=== PATIENT | male | born 1970 | race Caucasian/White ===

== ENCOUNTER 2021-05-12 03:27 | Emergency (ER) | payer OTHER ==
[~2021-05-12] VITALS: Ht 190.5 cm; Wt 100.0 kg
[~2021-05-12 03:27] MED LIST: ASPI81TA44 PO; ATOR20TA PO; CINA30TA PO; CLOP75TA34 PO; FEBU40TA PO; FERR325T28 PO; MAGN400C PO; METO-539 PO; MYCO500T5 PO; PHOS250T5 PO; PRED5TAB PO; SODI650T29 PO; TACR1CAP24 PO
[2021-05-12] MEDS ORDERED: ondansetron/PF 4mg/2ml inj IV STA (03:42)
[2021-05-12] MEDS ORDERED: normal saline 1000ml 1,000 ML IVB ONE (03:45)
[2021-05-12 05:17] VITALS: BP 129/83
[2021-05-13] MEDS ORDERED: AZIT250T PO (15:50)
[2021-05-13] MEDS ORDERED: DEXA6TAB6 PO (15:50)
== END 2021-05-12 05:22 | disposition home or self-care (01) ==
LOC: ER 03:27
DX: U07.1 COVID-19 (principal)
CPT/HCPCS: 96361; 96374; 99283; J2405; J7030; 99284

== ENCOUNTER 2021-05-13 13:20 | Emergency (ER) | payer OTHER ==
[~2021-05-13] VITALS: Ht 190.5 cm; Wt 100.0 kg
[2021-05-13 13:52] VITALS: BP 110/76
[2021-05-13] MEDS ORDERED: dexamethasone 4mg tablet PO ONE (15:40)
[2021-05-13] MEDS ORDERED: azithromycin 250mg tablet PO ONE (15:40)
[2021-05-13] MEDS ORDERED: F PO ONE (15:45)
[2021-05-13] MEDS ORDERED: DEXAMETHASONE 6 MG TABLET PO ONE (15:45)
[2021-05-13] MEDS ORDERED: DEXA6TAB6 PO (15:50)
[2021-05-13] MEDS ORDERED: AZIT250T PO (15:50)
[2021-05-13 16:25] LABS: BASOPHILS % (AUTO) 0.3 % (0-1); EOSINOPHILS % (AUTO) 0.2 % (0-6); HEMATOCRIT 39.3 % (42.0-52.0); HEMOGLOBIN 13.2 g/dl (14.0-17.9); LYMPHOCYTES # (AUTO) 0.3 X10'3 (1.1-4.8); LYMPHOCYTES % (AUTO) 5.2 % (21-51); MEAN CORPUSCULAR HEMOGLOBIN 30.3 PG (27.0-31.0); MEAN CORPUSCULAR HGB CONC 33.5 g/dL (33.0-36.5); MEAN CORPUSCULAR VOLUME 90.6 FL (78-98); MEAN PLATELET VOLUME 9.3 FL (7.4-10.4); MONOCYTES # (AUTO) 0.5 X10'3 (0-0.9); MONOCYTES % (AUTO) 8.7 % (2-12); NEUTROPHILS # (AUTO) 4.5 X10'3 (1.8-7.7); NEUTROPHILS % (AUTO) 85.6 % (42-75); PLATELET COUNT 146 X10'3 (140-440); RED BLOOD COUNT 4.34 X10'6 (4.70-6.10); RED CELL DISTRIBUTION WIDTH 13.6 % (11.5-14.5); WHITE BLOOD COUNT 5.2 X10'3 (4.5-11.0)
[2021-05-13 16:30] LABS: ALANINE AMINOTRANSFERASE 19 U/L (12-78); ALBUMIN 3.2 G/DL (3.4-5.0); ALBUMIN/GLOBULIN RATIO 0.8 (1.1-1.5); ALKALINE PHOSPHATASE 86 IU/L (46-116); ANION GAP 13 (8-16); ASPARTATE AMINO TRANSFERASE 15 U/L (10-37); BILIRUBIN,TOTAL 0.6 MG/DL (0.1-1.0); BLOOD UREA NITROGEN 46 MG/DL (7-18); BUN/CREATININE RATIO 14.3 (5.4-32.0); CALCIUM 8.6 MG/DL (8.5-10.1); CHLORIDE 107 MMOL/L (99-107); CREATININE 3.21 MG/DL (0.60-1.10); GLUCOSE 127 MG/DL (70-104); MAGNESIUM 2.2 MG/DL (1.5-2.4); POTASSIUM 4.9 MMOL/L (3.5-5.1); SODIUM 141 MMOL/L (135-145); TOTAL CARBON DIOXIDE 21.3 MMOL/L (24-32); eGFR 21 ML/MIN
[2021-05-13] MEDS ORDERED: [UNRECOGNIZED DRUG - OTHER] IV ONE (16:30)
--- NOTE | 2021-05-13 16:39 | NUR ---
FLOYD [phone]
== END 2021-05-13 18:21 | disposition home or self-care (01) ==
LOC: ER 13:21
DX: U07.1 COVID-19 (principal); J12.82 Pneumonia due to coronavirus disease 2019; I11.9 Hypertensive heart disease without heart failure; Z88.5 Allergy status to narcotic agent; Z79.899 Other long term (current) drug therapy
CPT/HCPCS: 36415; 71045; 80053; 83605; 83735; 84145; 85025; 87040; 93005; 99291; M0243; Q0243; J8540

== ENCOUNTER 2021-07-10 06:44 | Emergency (ER) | payer OTHER ==
[~2021-07-10] VITALS: Ht 190.5 cm; Wt 105.0 kg
[~2021-07-10 06:44] MED LIST changes: +DEXA6TAB6 PO
[2021-07-10] MEDS ORDERED: ondansetron/PF 4mg/2ml inj IV ONE (06:55)
[2021-07-10] MEDS ORDERED: morphine 4 MG/ML inj SYRINge IV ONE (06:55)
[2021-07-10 07:28] LABS: BASOPHILS % (AUTO) 0.7 % (0-1); EOSINOPHILS # (AUTO) 0.1 X10'3 (0-0.9); EOSINOPHILS % (AUTO) 1.3 % (0-6); HEMATOCRIT 29.3 % (42.0-52.0); HEMOGLOBIN 9.6 g/dl (14.0-17.9); LYMPHOCYTES # (AUTO) 0.9 X10'3 (1.1-4.8); LYMPHOCYTES % (AUTO) 16.4 % (21-51); MEAN CORPUSCULAR HEMOGLOBIN 30.5 PG (27.0-31.0); MEAN CORPUSCULAR HGB CONC 32.6 g/dL (33.0-36.5); MEAN CORPUSCULAR VOLUME 93.6 FL (78-98); MEAN PLATELET VOLUME 8.6 FL (7.4-10.4); MONOCYTES # (AUTO) 0.4 X10'3 (0-0.9); MONOCYTES % (AUTO) 6.9 % (2-12); NEUTROPHILS # (AUTO) 4.3 X10'3 (1.8-7.7); NEUTROPHILS % (AUTO) 74.7 % (42-75); PLATELET COUNT 175 X10'3 (140-440); RED BLOOD COUNT 3.13 X10'6 (4.70-6.10); RED CELL DISTRIBUTION WIDTH 16.2 % (11.5-14.5); WHITE BLOOD COUNT 5.8 X10'3 (4.5-11.0)
[2021-07-10 07:40] LABS: ALANINE AMINOTRANSFERASE 15 U/L (12-78); ALBUMIN 3.4 G/DL (3.4-5.0); ALBUMIN/GLOBULIN RATIO 1.4 (1.1-1.5); ALKALINE PHOSPHATASE 73 IU/L (46-116); ANION GAP 11 (8-16); ASPARTATE AMINO TRANSFERASE 9 U/L (10-37); BILIRUBIN,TOTAL 0.4 MG/DL (0.1-1.0); BLOOD UREA NITROGEN 38 MG/DL (7-18); BUN/CREATININE RATIO 14.3 (5.4-32.0); CALCIUM 9.2 MG/DL (8.5-10.1); CHLORIDE 114 MMOL/L (99-107); CREATININE 2.66 MG/DL (0.60-1.10); GLUCOSE 120 MG/DL (70-104); POTASSIUM 4.4 MMOL/L (3.5-5.1); SODIUM 146 MMOL/L (135-145); TOTAL CARBON DIOXIDE 21.1 MMOL/L (24-32); TOTAL PROTEIN 5.9 G/DL (6.4-8.2); eGFR 25 ML/MIN
[2021-07-10] MEDS ORDERED: LIDOcaine 1% W/epiNEPHrine 1:100,000 20ml vial ONE (08:00)
[2021-07-10] MEDS ORDERED: LIDOcaine 1% w/epiNEPHrine 1:200,000 30ml vial IJ ONE (08:25)
[2021-07-10] MEDS ORDERED: CEPH-585 PO (11:00)
[2021-07-10] MEDS ORDERED: HYDR-3965 PO (11:00)
[2021-07-10 11:33] VITALS: BP 105/79
== END 2021-07-10 11:40 | disposition home or self-care (01) ==
LOC: ER 06:44
DX: S80.02XA Contusion of left knee, initial encounter (principal); M25.562 Pain in left knee; M25.462 Effusion, left knee; I25.10 Atherosclerotic heart disease of native coronary artery without angina pectoris; E78.00 Pure hypercholesterolemia, unspecified; I10 Essential (primary) hypertension; M10.9 Gout, unspecified; Z98.890 Other specified postprocedural states; Z88.8 Allergy status to other drugs, medicaments and biological substances; Z79.82 Long term (current) use of aspirin; Z79.2 Long term (current) use of antibiotics; Z79.899 Other long term (current) drug therapy; W18.09XA Striking against other object with subsequent fall, initial encounter; Y93.89 Activity, other specified; Y92.89 Other specified places as the place of occurrence of the external cause; Y99.8 Other external cause status
CPT/HCPCS: 20610; 36415; 73552; 73560; 80053; 85025; 85610; 96374; 96375; 99284; J2270; J2405

== ENCOUNTER 2023-07-07 02:39 | Inpatient (IN) | payer OTHER ==
[~2023-07-07] VITALS: Ht 188 cm; Wt 103.5 kg
[2023-07-07] MEDS ORDERED: normal saline 1000ml 1,000 ML IV ONE (03:35)
--- NOTE | 2023-07-07 03:36 | NUR ---
WHILE OBTAINING ORTHOSTATIC VITALS, PATIENT BECAME DIZZY DURING STANDING BP, ATTEMPTED TO ASSIST PATIENT BACK TO BED, PATIENT FAINTED, BECAME DIAPHORETIC AND PALE. ASSISTED PATIENT BACK TO BED WITH ASSISTANCE FROM STAFF X2. NOTIFIED, VERBALIZED UNDERSTANDING.
[2023-07-07 04:05] LABS: APTT 23 SECONDS (22-32); PROTHROMBIN TIME 11.2 SECONDS (9.0-12.0)
[2023-07-07 04:07] LABS: ALANINE AMINOTRANSFERASE 19 U/L (12-78); ALBUMIN 3.9 G/DL (3.4-5.0); ALBUMIN/GLOBULIN RATIO 1.4 (1.1-1.5); ALKALINE PHOSPHATASE 97 IU/L (46-116); ANION GAP 10 (8-16); ASPARTATE AMINO TRANSFERASE 15 U/L (10-37); BILIRUBIN,TOTAL 0.5 MG/DL (0.1-1.0); BLOOD UREA NITROGEN 48 MG/DL (7-18); BUN/CREATININE RATIO 13.9 (10.0-20.0); CALCIUM 9.6 MG/DL (8.5-10.1); CHLORIDE 108 MMOL/L (99-107); CREATININE 3.45 MG/DL (0.60-1.10); GLUCOSE 121 MG/DL (70-104); POTASSIUM 4.3 MMOL/L (3.5-5.1); SODIUM 139 MMOL/L (135-145); TOTAL CARBON DIOXIDE 21.3 MMOL/L (24-32); TOTAL PROTEIN 6.7 G/DL (6.4-8.2); eCRCL 29 ML/MIN; eGFR 19 ML/MIN
[2023-07-07 04:11] LABS: BASOPHILS % (AUTO) 0.5 % (0-1); EOSINOPHILS % (AUTO) 0.3 % (0-6); HEMATOCRIT 35.8 % (42.0-52.0); HEMOGLOBIN 11.8 g/dl (14.0-17.9); LYMPHOCYTES # (AUTO) 1.1 X10'3 (1.1-4.8); LYMPHOCYTES % (AUTO) 13.1 % (21-51); MEAN CORPUSCULAR HEMOGLOBIN 30.5 PG (27.0-31.0); MEAN CORPUSCULAR HGB CONC 33.1 g/dL (33.0-36.5); MEAN CORPUSCULAR VOLUME 92.2 FL (78-98); MEAN PLATELET VOLUME 8.9 FL (7.4-10.4); MONOCYTES # (AUTO) 0.6 X10'3 (0-0.9); MONOCYTES % (AUTO) 6.5 % (2-12); NEUTROPHILS # (AUTO) 6.9 X10'3 (1.8-7.7); NEUTROPHILS % (AUTO) 79.6 % (42-75); PLATELET COUNT 178 X10'3 (140-440); RED BLOOD COUNT 3.88 X10'6 (4.70-6.10); RED CELL DISTRIBUTION WIDTH 14.9 % (11.5-14.5); WHITE BLOOD COUNT 8.7 X10'3 (4.5-11.0)
--- NOTE | 2023-07-07 04:22 | NUR ---
PATIENT ENDORSES NAUSEA, RELAYED TO MD, NEW ORDERS RECEIVED.
[2023-07-07] MEDS ORDERED: ondansetron/PF 4mg/2ml inj IV ONE (04:25)
--- NOTE | 2023-07-07 06:27 | NUR ---
REPORT GIVEN TO DAY CHARGE, CHIRAG.
--- NOTE | 2023-07-07 07:05 | NUR ---
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
[2023-07-07 07:42] LABS: BASOPHILS % (AUTO) 0.3 % (0-1); EOSINOPHILS % (AUTO) 0.1 % (0-6); HEMATOCRIT 31.1 % (42.0-52.0); HEMOGLOBIN 10.1 g/dl (14.0-17.9); LYMPHOCYTES # (AUTO) 0.6 X10'3 (1.1-4.8); LYMPHOCYTES % (AUTO) 4.5 % (21-51); MEAN CORPUSCULAR HGB CONC 32.6 g/dL (33.0-36.5); MEAN PLATELET VOLUME 8.9 FL (7.4-10.4); MONOCYTES # (AUTO) 1.1 X10'3 (0-0.9); NEUTROPHILS # (AUTO) 11.9 X10'3 (1.8-7.7); NEUTROPHILS % (AUTO) 87.1 % (42-75); PLATELET COUNT 164 X10'3 (140-440); RED BLOOD COUNT 3.38 X10'6 (4.70-6.10); RED CELL DISTRIBUTION WIDTH 14.7 % (11.5-14.5); WHITE BLOOD COUNT 13.7 X10'3 (4.5-11.0)
[2023-07-07] MEDS ORDERED: potassium Cl 20 mEq SR tablet PO PRN ×2 (09:30)
[2023-07-07] MEDS ORDERED: ondansetron/PF 4mg/2ml inj IV PRN (09:30)
[2023-07-07] MEDS ORDERED: morphine 2 MG/ML inj. syringe IV PRN (09:30)
[2023-07-07] MEDS ORDERED: potassium Cl 40MEQ/1/2NS 520ml 520 ML IV PRN (09:30)
--- NOTE | 2023-07-07 09:42 | NUR ---
recieved report from Kathy RN assumed care of pt upon entering room pt's pupils dilated " I can't hear you my head is in a fog" pt denies numbness tingling to extremties tree trimmer equal s/s cleared within [address] whitley notified new orders received and implemented new plan of care discussed w pt and all questions and concerns addressed pt's verbal satisfaction
[2023-07-07] MEDS: normal saline 1000ml 1,000 ML IV SCH (10:05)
[2023-07-07 10:40] LABS: CREATINE KINASE 148 U/L (39-308)
--- NOTE | 2023-07-07 10:56 | NUR ---
pt taken to ct via gurelizabeth by rosa maria cheney
--- NOTE | 2023-07-07 11:03 | NUR ---
back from ct tolerated well monitor leads on and functioning ivf resumed
[2023-07-07] MEDS ORDERED: TACR1CAP PO (13:45)
[2023-07-07] MEDS ORDERED: LOP12.5T PO (13:45)
[2023-07-07] MEDS ORDERED: ERGO500056 PO (13:45)
--- NOTE | 2023-07-07 16:56 | NUR ---
PT TRANSFERED TO HOSPITAL BED MONITOR LEADS ON AND FUNCTIONING
[2023-07-08] VITALS (7 sets, daily range): BP systolic 123–164; BP diastolic 73–99; PULSE 84–105; RESP 16–24; TEMP 98–98.7; O2SAT 97–100
[2023-07-08 03:48] LABS: BASOPHILS # (AUTO) 0.2 X10'3 (0-0.2); BASOPHILS % (AUTO) 1.8 % (0-1); EOSINOPHILS % (AUTO) 0.2 % (0-6); HEMATOCRIT 25.5 % (42.0-52.0); HEMOGLOBIN 8.2 g/dl (14.0-17.9); LYMPHOCYTES # (AUTO) 0.6 X10'3 (1.1-4.8); LYMPHOCYTES % (AUTO) 6.7 % (21-51); MEAN CORPUSCULAR HEMOGLOBIN 30.3 PG (27.0-31.0); MEAN CORPUSCULAR HGB CONC 32.2 g/dL (33.0-36.5); MEAN CORPUSCULAR VOLUME 94.3 FL (78-98); MEAN PLATELET VOLUME 8.6 FL (7.4-10.4); MONOCYTES # (AUTO) 0.6 X10'3 (0-0.9); MONOCYTES % (AUTO) 6.7 % (2-12); NEUTROPHILS # (AUTO) 7.9 X10'3 (1.8-7.7); NEUTROPHILS % (AUTO) 84.6 % (42-75); PLATELET COUNT 143 X10'3 (140-440); WHITE BLOOD COUNT 9.4 X10'3 (4.5-11.0)
[2023-07-08 04:00] LABS: ALBUMIN 3.1 G/DL (3.4-5.0); ANION GAP 14 (8-16); BLOOD UREA NITROGEN 66 MG/DL (7-18); BUN/CREATININE RATIO 15.9 (10.0-20.0); CALCIUM 9.3 MG/DL (8.5-10.1); CHLORIDE 112 MMOL/L (99-107); CREATINE KINASE 143 U/L (39-308); CREATININE 4.14 MG/DL (0.60-1.10); GLUCOSE 73 MG/DL (70-104); POTASSIUM 5.5 MMOL/L (3.5-5.1); SODIUM 143 MMOL/L (135-145); TOTAL CARBON DIOXIDE 16.8 MMOL/L (24-32); eCRCL 24 ML/MIN; eGFR 15 ML/MIN
[2023-07-08 04:00] LABS: BILIRUBIN,URINE SMALL (Neg); CLARITY,URINE CLEAR (Clear); COLOR,URINE YELLOW (Yellow); GLUCOSE, URINE NEGATIVE (Neg); KETONES,URINE 15 mg/dl (Neg); LEUKOCYTE ESTERASE ,URINE NEGATIVE (Neg); NITRITES, URINE NEGATIVE (Neg); OCCULT BLOOD,URINE NEGATIVE (Neg); PH,URINE 5.5 (4.8-8.0); PROTEIN,URINE TRACE mg/dl (Neg); UROBILINOGEN,URINE 0.2 E.U/dL (0.2-1.0)
[2023-07-08 04:02] LABS: TOTAL PROTEIN,URINE RANDOM 27.8 MG/DL
[2023-07-08 04:05] LABS: UA COLLECTION TYPE CLN CATCH MIDSTREAM
[2023-07-08 04:22] LABS: AMORPHOUS URATES 1+; BACTERIA,URINE NONE SEEN /HPF (Neg); RBC,URINE NONE SEEN /HPF (0-2); SQUAMOUS EPITHELIAL CELL,UR FEW /LPF (FEW); WBC,URINE 0-4 /HPF (0-4)
[2023-07-08 04:48] LABS: UA EOSINOPHILS NO EOS /HPF
[2023-07-08] MEDS: normal saline 1000ml 1,000 ML IV SCH ×2 (05:02→17:47)
--- NOTE | 2023-07-08 07:36 | NUR ---
called shannan at [phone] to inquire about pt home meds which is not started and med rec is completed,pt hb is 8.2/hct 25.5 and pt has hx of kidney transplant if in case pt need bld transfusion ,can we admin bld transfusion to kidney transplant pt as per md she will inquire from dr saxena and at this time there is no need for bld transfusion ,md is awaiting call from surgeon zoila keep the pt npo until further notice.
[2023-07-08] MEDS: normal saline 1000ml 1,000 ML IV ONE ×2 (08:10→09:59)
[2023-07-08] MEDS: predniSONE 5mg tablet PO SCH (08:10)
[2023-07-08] MEDS: mycophenolate mofetil 250mg capsule PO SCH (08:11)
[2023-07-08] MEDS: tacrolimus anhydrous 1mg capsule PO SCH ×2 (08:14→21:49)
--- NOTE | 2023-07-08 08:48 | NUR ---
spoke to pt's and updated her on plan of care.
--- NOTE | 2023-07-08 09:44 | NUR ---
provider at bedside.
--- NOTE | 2023-07-08 11:00 | NUR ---
spoke to resident shannan regarding blood transfusion ,as per md start the blood transfuion and recheck the hemogram and based on the hemogram will decide for 2 nd unit of blood.
--- NOTE | 2023-07-08 13:16 | NUR ---
dr penn at bedside.stated no need for surgery .
--- NOTE | 2023-07-08 15:00 | NUR ---
Patient in room PCU 3023. [facility] and had the opportunity to ask questions and assume patient care.
--- NOTE | 2023-07-08 15:45 | NUR ---
Patient transferred from ED to PCU. Patient stable and has no c/o of pain or discomfort at this time. I supplied him with water at bedside and a sandwich due to his npo order ending. Call light in reach. Gave pt urinal and showed him how to control the tv. Answered all questions and hooked up NS at 75ml/hr.
[2023-07-08] MEDS: metoprolol tartrate 12.5mg (1/2 tablet) PO SCH (21:49)
[2023-07-08 23:05] LABS: HEMATOCRIT 23.1 % (42.0-52.0); HEMOGLOBIN 7.7 g/dl (14.0-17.9); MEAN CORPUSCULAR HEMOGLOBIN 30.7 PG (27.0-31.0); MEAN CORPUSCULAR HGB CONC 33.3 g/dL (33.0-36.5); MEAN CORPUSCULAR VOLUME 92.3 FL (78-98); MEAN PLATELET VOLUME 9.2 FL (7.4-10.4); PLATELET COUNT 130 X10'3 (140-440); RED BLOOD COUNT 2.51 X10'6 (4.70-6.10); RED CELL DISTRIBUTION WIDTH 14.6 % (11.5-14.5); WHITE BLOOD COUNT 6.6 X10'3 (4.5-11.0)
[2023-07-09] VITALS (12 sets, daily range): BP systolic 121–160; BP diastolic 67–91; PULSE 71–90; RESP 11–25; TEMP 97.6–98.9; O2SAT 95–98
[2023-07-09] MEDS: mycophenolate mofetil 250mg capsule PO SCH ×3 (01:00→20:05)
[2023-07-09] MEDS: normal saline 1000ml 1,000 ML IV SCH ×3 (01:22→14:42)
--- NOTE | 2023-07-09 06:37 | NUR ---
Problems reprioritized. Patient report given, questions answered & plan of care reviewed with
--- NOTE | 2023-07-09 06:44 | NUR ---
Patient in room PCU 3023. I have received report from DEBBIE Grant and had the opportunity to ask questions and assume patient care.
[2023-07-09 07:29] LABS: BASOPHILS % (AUTO) 0.4 % (0-1); EOSINOPHILS % (AUTO) 0.5 % (0-6); HEMATOCRIT 23.4 % (42.0-52.0); HEMOGLOBIN 7.8 g/dl (14.0-17.9); LYMPHOCYTES # (AUTO) 0.8 X10'3 (1.1-4.8); LYMPHOCYTES % (AUTO) 12.8 % (21-51); MEAN CORPUSCULAR HEMOGLOBIN 30.7 PG (27.0-31.0); MEAN CORPUSCULAR HGB CONC 33.2 g/dL (33.0-36.5); MEAN CORPUSCULAR VOLUME 92.6 FL (78-98); MEAN PLATELET VOLUME 8.8 FL (7.4-10.4); MONOCYTES # (AUTO) 0.6 X10'3 (0-0.9); NEUTROPHILS # (AUTO) 4.9 X10'3 (1.8-7.7); NEUTROPHILS % (AUTO) 76.3 % (42-75); PLATELET COUNT 127 X10'3 (140-440); RED BLOOD COUNT 2.53 X10'6 (4.70-6.10); RED CELL DISTRIBUTION WIDTH 14.7 % (11.5-14.5); WHITE BLOOD COUNT 6.4 X10'3 (4.5-11.0)
[2023-07-09 08:08] LABS: ALBUMIN 2.7 G/DL (3.4-5.0); ANION GAP 11 (8-16); BLOOD UREA NITROGEN 61 MG/DL (7-18); BUN/CREATININE RATIO 16.2 (10.0-20.0); CALCIUM 8.9 MG/DL (8.5-10.1); CHLORIDE 114 MMOL/L (99-107); CREATININE 3.76 MG/DL (0.60-1.10); GLUCOSE 103 MG/DL (70-104); POTASSIUM 4.5 MMOL/L (3.5-5.1); SODIUM 144 MMOL/L (135-145); TOTAL CARBON DIOXIDE 18.6 MMOL/L (24-32); eCRCL 26 ML/MIN; eGFR 17 ML/MIN
[2023-07-09] MEDS: predniSONE 5mg tablet PO SCH (08:08)
[2023-07-09] MEDS: atorvastatin 20mg tablet PO SCH (08:08)
[2023-07-09] MEDS: metoprolol tartrate 12.5mg (1/2 tablet) PO SCH ×2 (08:09→20:00)
[2023-07-09] MEDS: dextrose 5%-water 1,000 ML IV SCH ×2 (08:15→23:25)
[2023-07-09] MEDS: tacrolimus anhydrous 1mg capsule PO SCH ×2 (08:19→20:05)
[2023-07-09] MEDS ORDERED: FLU VACC QS2023-24(6MOS UP)/PF 60 MCG/0.5 ML SYRINGE IM ONE (10:00)
[2023-07-09] MEDS ORDERED: pneumococcal 23-VAL P-sac vacc 25 mcg/0.5ml vial IMVAC ONE (10:00)
[2023-07-10] VITALS (9 sets, daily range): BP systolic 126–154; BP diastolic 68–87; PULSE 73–99; RESP 12–22; TEMP 97.6–99.9; O2SAT 97–99
[2023-07-10] MEDS: dextrose 5%-water 1,000 ML IV SCH (04:15)
--- NOTE | 2023-07-10 06:26 | NUR ---
Patient in room PCU 3023. I have received report from Luis E LEWIS and had the opportunity to ask questions and assume patient care. Patient is resting in bed in no acute distress. Needs met at this time.
[2023-07-10 07:17] LABS: BASOPHILS % (AUTO) 0.3 % (0-1); EOSINOPHILS % (AUTO) 0.9 % (0-6); HEMATOCRIT 24.2 % (42.0-52.0); HEMOGLOBIN 8.1 g/dl (14.0-17.9); LYMPHOCYTES # (AUTO) 0.9 X10'3 (1.1-4.8); LYMPHOCYTES % (AUTO) 18.8 % (21-51); MEAN CORPUSCULAR HGB CONC 33.4 g/dL (33.0-36.5); MEAN CORPUSCULAR VOLUME 92.7 FL (78-98); MEAN PLATELET VOLUME 8.7 FL (7.4-10.4); MONOCYTES # (AUTO) 0.5 X10'3 (0-0.9); MONOCYTES % (AUTO) 9.8 % (2-12); NEUTROPHILS # (AUTO) 3.4 X10'3 (1.8-7.7); NEUTROPHILS % (AUTO) 70.2 % (42-75); PLATELET COUNT 110 X10'3 (140-440); RED BLOOD COUNT 2.61 X10'6 (4.70-6.10); RED CELL DISTRIBUTION WIDTH 14.8 % (11.5-14.5); WHITE BLOOD COUNT 4.8 X10'3 (4.5-11.0)
[2023-07-10 07:27] LABS: ALBUMIN 2.7 G/DL (3.4-5.0); ANION GAP 10 (8-16); BLOOD UREA NITROGEN 45 MG/DL (7-18); BUN/CREATININE RATIO 14.7 (10.0-20.0); CALCIUM 8.7 MG/DL (8.5-10.1); CHLORIDE 111 MMOL/L (99-107); CREATININE 3.07 MG/DL (0.60-1.10); GLUCOSE 120 MG/DL (70-104); POTASSIUM 3.9 MMOL/L (3.5-5.1); SODIUM 141 MMOL/L (135-145); TOTAL CARBON DIOXIDE 20.1 MMOL/L (24-32); eCRCL 32 ML/MIN; eGFR 21 ML/MIN
[2023-07-10] MEDS: metoprolol tartrate 12.5mg (1/2 tablet) PO SCH ×2 (07:55→19:56)
[2023-07-10] MEDS: tacrolimus anhydrous 1mg capsule PO SCH ×2 (07:55→19:56)
[2023-07-10] MEDS: predniSONE 5mg tablet PO SCH (07:55)
[2023-07-10] MEDS: mycophenolate mofetil 250mg capsule PO SCH ×2 (07:56→19:56)
[2023-07-10] MEDS: normal saline 1000ml 1,000 ML IV SCH ×2 (08:00→08:52)
--- NOTE | 2023-07-10 09:59 | NUR ---
per Dr Cabrera I am to DC D5W and NS and saline lock this patient .
[2023-07-10] MEDS: amLODIPine 5mg tablet PO SCH (11:47)
--- NOTE | 2023-07-10 14:22 | NUR ---
patient walked 200ft . Tolerated activity well. Care was taken not to pop blisters. will try to walk again this afternoon.
--- NOTE | 2023-07-10 14:54 | NUR ---
PRESSURE ULCER EDUCATION: DEFINITION: A pressure ulcer is an area of skin that breaks down when you stay in one position too long. The constant pressure against the skin reduces the blood flow to that area and the affected tissue dies. CAUSES: "Being bedridden or in a wheelchair "Fragile skin "Having a chronic condition, such as diabetes or vascular disease "Inability to move certain parts of your body without assistance "Older age "Incontinence of urine or stool SYMPTOMS: "A reddened area that DOES NOT turn white when pressed on - this can be the beginning of a pressure ulcer "A blister, deep sore or a crater - these can be advanced pressure ulcers FIRST AID: "Relieve the pressure on this area "Keep the area clean and dry "Call your primary doctor if you see any of the above symptoms "DO NOT massage the area "DO NOT use a donut shaped or ring shaped pillow- these actually interfere with the blood flow and cause complications PREVENTION: "Check for pressure ulcers everyday "Change position at least every two hours to relieve pressure "Use items that help relieve pressure- pillows, sheepskin, foam padding, and powders. "Keep skin clean and dry "Eat healthy well balanced meals "Exercise daily IF YOU SEE ANY OF THESE SYMPTOMS WHILE IN THE HOSPITAL - TELL YOUR NURSE IMMEDIATELY. IF YOU SEE ANY OF THESE SYMPTOMS WHILE AT HOME OR HAVE ANY QUESTIONS OR CONCERNS ABOUT PRESSURE ULCERS - CALL YOUR PRIMARY DOCTOR IMMEDIATELY. Addendum: 07/10/23 at 1455 by Jyoti Paulino LVN Amended: Links added.
--- NOTE | 2023-07-10 17:34 | NUR ---
walked patient 200 ft HR increased to 130s patient recovered well afterwards
--- NOTE | 2023-07-10 18:17 | NUR ---
Problems reprioritized. Patient report given, questions answered & plan of care reviewed with Luis E LEWIS. Patient resting in bed in no acute distress.
[2023-07-11] VITALS (9 sets, daily range): BP systolic 100–167; BP diastolic 62–91; PULSE 74–100; RESP 14–20; TEMP 97.7–98.7; O2SAT 96–100
[2023-07-11] MEDS: amLODIPine 5mg tablet PO SCH (07:44)
[2023-07-11] MEDS: atorvastatin 20mg tablet PO SCH (07:44)
[2023-07-11] MEDS: predniSONE 5mg tablet PO SCH (07:44)
[2023-07-11] MEDS: metoprolol tartrate 12.5mg (1/2 tablet) PO SCH ×2 (07:45→19:22)
[2023-07-11] MEDS: tacrolimus anhydrous 1mg capsule PO SCH ×2 (07:45→19:22)
[2023-07-11] MEDS: mycophenolate mofetil 250mg capsule PO SCH ×2 (07:45→19:22)
[2023-07-11 07:52] LABS: BASOPHILS % (AUTO) 0.5 % (0-1); EOSINOPHILS # (AUTO) 0.1 X10'3 (0-0.9); EOSINOPHILS % (AUTO) 1.3 % (0-6); HEMATOCRIT 24.1 % (42.0-52.0); LYMPHOCYTES # (AUTO) 0.9 X10'3 (1.1-4.8); LYMPHOCYTES % (AUTO) 18.8 % (21-51); MEAN CORPUSCULAR HEMOGLOBIN 30.8 PG (27.0-31.0); MEAN CORPUSCULAR HGB CONC 33.3 g/dL (33.0-36.5); MEAN CORPUSCULAR VOLUME 92.5 FL (78-98); MONOCYTES # (AUTO) 0.5 X10'3 (0-0.9); MONOCYTES % (AUTO) 9.7 % (2-12); NEUTROPHILS # (AUTO) 3.3 X10'3 (1.8-7.7); NEUTROPHILS % (AUTO) 69.7 % (42-75); PLATELET COUNT 115 X10'3 (140-440); RED CELL DISTRIBUTION WIDTH 14.8 % (11.5-14.5); WHITE BLOOD COUNT 4.7 X10'3 (4.5-11.0)
[2023-07-11] MEDS ORDERED: FLU VACC QS2023-24(6MOS UP)/PF 60 MCG/0.5 ML SYRINGE IM ONE (08:00)
[2023-07-11 08:13] LABS: ALBUMIN 2.7 G/DL (3.4-5.0); ANION GAP 9 (8-16); BLOOD UREA NITROGEN 43 MG/DL (7-18); BUN/CREATININE RATIO 14.3 (10.0-20.0); CHLORIDE 112 MMOL/L (99-107); GLUCOSE 97 MG/DL (70-104); SODIUM 142 MMOL/L (135-145); TOTAL CARBON DIOXIDE 20.9 MMOL/L (24-32); eCRCL 33 ML/MIN; eGFR 22 ML/MIN
--- NOTE | 2023-07-11 10:45 | NUR ---
Nursing reported ruptured blister to the right inner thigh. Assisted with wound care per MD order. Addendum: 07/14/23 at 0811 by Tim Molina RN JUAN CARLOS LEWIS DOCUMENTATION: I agree with documentation and care. Tim Molina RN, WOC.
--- NOTE | 2023-07-11 10:52 | NUR ---
large blister started leaking after our walk of 200ft. Pt HR 120-130 with exertion. Patient recovers well when resting. Wound care was notified and came to wrap leaking blister . Will monitor for changes and saturation and change dressing when necessary.
--- NOTE | 2023-07-11 17:09 | NUR ---
walked patient 200 ft. HR increased 120-130s and returned to baseline soon after sitting back down. Wound covering was saturated with serosanguineous fluid. Wound covering changed per woc orders.
--- NOTE | 2023-07-11 18:20 | NUR ---
Problems reprioritized. Patient report given, questions answered & plan of care reviewed with Tesha DEBBIE. Patient resting in bed in no acute distress.
[2023-07-12 02:00] VITALS: BP 151/94; PULSE 79; RESP 15; TEMP 97.9; O2SAT 98
[2023-07-12 07:00] VITALS: BP 147/87; PULSE 78; RESP 12; TEMP 98.4; O2SAT 98
--- NOTE | 2023-07-12 07:00 | NUR ---
This RN has reviewed and has added a column to this patient's physical assessment.
[2023-07-12] MEDS: metoprolol tartrate 12.5mg (1/2 tablet) PO SCH (07:33)
[2023-07-12] MEDS: amLODIPine 5mg tablet PO SCH (07:33)
[2023-07-12] MEDS: mycophenolate mofetil 250mg capsule PO SCH (07:33)
[2023-07-12] MEDS: predniSONE 5mg tablet PO SCH (07:33)
[2023-07-12] MEDS: tacrolimus anhydrous 1mg capsule PO SCH (07:34)
[2023-07-12 07:50] LABS: BASOPHILS % (AUTO) 0.6 % (0-1); EOSINOPHILS # (AUTO) 0.1 X10'3 (0-0.9); EOSINOPHILS % (AUTO) 1.4 % (0-6); HEMATOCRIT 24.9 % (42.0-52.0); HEMOGLOBIN 8.4 g/dl (14.0-17.9); LYMPHOCYTES # (AUTO) 0.8 X10'3 (1.1-4.8); LYMPHOCYTES % (AUTO) 16.6 % (21-51); MEAN CORPUSCULAR HGB CONC 33.7 g/dL (33.0-36.5); MEAN PLATELET VOLUME 8.9 FL (7.4-10.4); MONOCYTES # (AUTO) 0.4 X10'3 (0-0.9); MONOCYTES % (AUTO) 8.8 % (2-12); NEUTROPHILS # (AUTO) 3.5 X10'3 (1.8-7.7); NEUTROPHILS % (AUTO) 72.6 % (42-75); PLATELET COUNT 133 X10'3 (140-440); RED BLOOD COUNT 2.71 X10'6 (4.70-6.10); RED CELL DISTRIBUTION WIDTH 14.8 % (11.5-14.5); WHITE BLOOD COUNT 4.8 X10'3 (4.5-11.0)
[2023-07-12 08:00] VITALS: RESP 16; O2SAT 99
[2023-07-12 08:23] LABS: ALBUMIN 2.9 G/DL (3.4-5.0); ANION GAP 12 (8-16); BLOOD UREA NITROGEN 47 MG/DL (7-18); CALCIUM 9.2 MG/DL (8.5-10.1); CHLORIDE 110 MMOL/L (99-107); CREATININE 2.93 MG/DL (0.60-1.10); GLUCOSE 94 MG/DL (70-104); SODIUM 141 MMOL/L (135-145); TOTAL CARBON DIOXIDE 19.1 MMOL/L (24-32); eCRCL 34 ML/MIN; eGFR 23 ML/MIN
[2023-07-12] MEDS ORDERED: FLU VACC QS2023-24(6MOS UP)/PF 60 MCG/0.5 ML SYRINGE IM ONE (09:05)
[2023-07-12] MEDS ORDERED: pneumococcal 23-VAL P-sac vacc 25 mcg/0.5ml vial IMVAC ONE (09:05)
--- NOTE | 2023-07-12 10:57 | NUR ---
Initial: Pt admit for large hematoma on right thigh. Pt seen by wound care, per note pt with intact blistering to right thigh. Pt with h/o ESRD with two renal transplants, screen handler following. Pt on a renal diet and eating well, documented with 100% PO intake of all meals with the exception of 50% PO intake of one meal since admit. Despite good PO intake pt meeting 74% estimated energy needs and 82% estimated protein needs d/t large stature. D/w dietary to send double protein BIDLD for satiety and to assist with meeting estimated nutrient needs. LBM 07/11 per EMR. Will continue to follow and monitor need for further nutrition intervention. Recommendations: 1) Continue renal diet 2) Double protein BIDLD for satiety and to assist with meeting estimated nutrient needs; monitor need for ONS 3) Bowel care PRN 4) Daily scaled weights per rx Addendum: 07/12/23 at [address] Amended: Links added.
[2023-07-12 11:00] VITALS: BP 134/83; PULSE 86; RESP 22; TEMP 97.3; O2SAT 97
--- NOTE | 2023-07-12 16:29 | NUR ---
patient showered before heading home . Wound care pics taken and education on wound dressing changes and wound care shown to patient and . Piv was removed with cannula intact. No new Rx. Patient advised to order picker/assembler OTC iron 225 mg po kusum y for one month per Dr. Cabrera. I offered to call in RX to patient pharmacy and he declined stating he can pick it up. DC instructions and warning s/s were reviewed with patient and and both verbalized understanding. Patient alert, oriented and appropriate at time of DC. Patient was wheeled to front of hospital and got into car with .
[2023-07-13] MEDS ORDERED: ferrous gluconate 324mg tablet PO SCH (08:00)
== END 2023-07-12 17:21 | disposition home or self-care (01) | DRG 604 ==
LOC: ER 02:40 → ED HOLD 11:24 → EDBEDREQ 19:45 → ED HOLD 07-08 04:44 → PCU 3S 07-08 15:45
PROVIDERS: ADMIT Internal Medicine; ATTEND Internal Medicine
PROC: 30233N1 Transfusion of Nonautologous Red Blood Cells into Peripheral Vein, Percutaneous Approach (ICD-10-PCS; principal; 2023-07-08)
DX: S70.11XA Contusion of right thigh, initial encounter (principal); R57.1 Hypovolemic shock; Z94.0 Kidney transplant status; N17.9 Acute kidney failure, unspecified; T86.19 Other complication of kidney transplant; E78.00 Pure hypercholesterolemia, unspecified; D50.0 Iron deficiency anemia secondary to blood loss (chronic); I12.9 Hypertensive chronic kidney disease with stage 1 through stage 4 chronic kidney disease, or unspecified chronic kidney disease; N18.9 Chronic kidney disease, unspecified; M10.9 Gout, unspecified; R55 Syncope and collapse; Y83.0 Surgical operation with transplant of whole organ as the cause of abnormal reaction of the patient, or of later complication, without mention of misadventure at the time of the procedure; I25.10 Atherosclerotic heart disease of native coronary artery without angina pectoris; X58.XXXA Exposure to other specified factors, initial encounter; Y93.89 Activity, other specified; Y92.89 Other specified places as the place of occurrence of the external cause; Y99.8 Other external cause status; Z95.5 Presence of coronary angioplasty implant and graft; Z79.82 Long term (current) use of aspirin; Z79.01 Long term (current) use of anticoagulants; Z79.02 Long term (current) use of antithrombotics/antiplatelets; Z88.8 Allergy status to other drugs, medicaments and biological substances; Z79.899 Other long term (current) drug therapy; I25.2 Old myocardial infarction
CPT/HCPCS: 36415; 36430; 70450; 73552; 76770; 80048; 80053; 80197; 81001; 82550; 82570; 84156; 84300; 85025; 85027; 85610; 85730; 86885; 86900; 86901; 86920; 87081; 87207; 90686; 90732; 93926; 96374; 99285; A6223; A6253; A6258; A6446; A6449; G0378; J2405; J7030; J7040; J7070; J7507; J7512; J7517; P9016

== ENCOUNTER 2024-07-08 15:26 | Emergency (ER) | payer OTHER ==
[~2024-07-08] VITALS: Ht 190.5 cm; Wt 93.2 kg
[~2024-07-08 15:26] MED LIST changes: -DEXA6TAB6 PO; +ERGO500056 PO; -FERR325T28 PO; +LOP12.5T PO; -METO-539 PO; -SODI650T29 PO; +TACR1CAP PO; -TACR1CAP24 PO
[2024-07-08 15:28] VITALS: TEMP 97.5
[2024-07-08 17:11] VITALS: BP 143/94; PULSE 57; RESP 14; O2SAT 100
== END 2024-07-08 17:11 | disposition home or self-care (01) ==
LOC: ER 15:27
DX: I10 Essential (primary) hypertension (principal); I25.10 Atherosclerotic heart disease of native coronary artery without angina pectoris; E78.00 Pure hypercholesterolemia, unspecified; Z88.8 Allergy status to other drugs, medicaments and biological substances; Z79.82 Long term (current) use of aspirin; Z94.0 Kidney transplant status; Z95.5 Presence of coronary angioplasty implant and graft
CPT/HCPCS: 99281

== ENCOUNTER 2025-02-16 05:22 | Inpatient (IN) | payer OTHER ==
[~2025-02-16] VITALS: Ht 190.5 cm; Wt 100.0 kg
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
[2025-02-16 10:18] LABS: BASOPHILS % (AUTO) 0.4 % (0-1); EOSINOPHILS % (AUTO) 0.5 % (0-6); LYMPHOCYTES # (AUTO) 0.7 X10'3 (1.1-4.8); LYMPHOCYTES % (AUTO) 10.7 % (21-51); MEAN CORPUSCULAR HEMOGLOBIN 29.2 PG (27.0-31.0); MEAN CORPUSCULAR HGB CONC 30.8 g/dL (33.0-36.5); MEAN CORPUSCULAR VOLUME 94.9 FL (78-98); MEAN PLATELET VOLUME 8.7 FL (7.4-10.4); MONOCYTES # (AUTO) 0.5 X10'3 (0-0.9); MONOCYTES % (AUTO) 6.8 % (2-12); NEUTROPHILS # (AUTO) 5.6 X10'3 (1.8-7.7); NEUTROPHILS % (AUTO) 81.6 % (42-75); PLATELET COUNT 218 X10'3 (140-440); RED CELL DISTRIBUTION WIDTH 16.6 % (11.5-14.5); WHITE BLOOD COUNT 6.9 X10'3 (4.5-11.0)
[2025-02-16 10:21] LABS: HEMOGLOBIN 6.4 g/dl (14.0-17.9)
[2025-02-16 10:22] LABS: HEMATOCRIT 20.9 % (42.0-52.0)
[2025-02-16 10:23] LABS: ANION GAP 9 (8-16); BLOOD UREA NITROGEN 45 MG/DL (7-18); BUN/CREATININE RATIO 11.7 (10.0-20.0); C-REACTIVE PROTEIN 4.88 MG/DL (0.0-0.5); CALCIUM 8.9 MG/DL (8.5-10.1); CHLORIDE 115 MMOL/L (99-107); CREATININE 3.86 MG/DL (0.60-1.10); GLUCOSE 96 MG/DL (70-104); POTASSIUM 5.2 MMOL/L (3.5-5.1); SODIUM 144 MMOL/L (135-145); TOTAL CARBON DIOXIDE 19.8 MMOL/L (24-32); eCRCL 26 ML/MIN; eGFR 16 ML/MIN
[2025-02-16] MEDS: ringers solution, lacted 1,000 ML IV ONE (10:39)
[2025-02-16] MEDS ORDERED: CEPH-194 (10:58)
--- NOTE | 2025-02-16 11:07 | VASCULAR REPORT ---
Technique: Real-time ultrasound imaging, with color Doppler and compression of the right common femo ral vein, femoral vein, greater saphenous vein, and popliteal vein. Indication: Pain/swelling Comparison: None Findings: There is normal compressibility and flow augmentation in all of the imaged deep veins. There are no f illing defects. There is right lower extremity soft tissue edema. Impression: 1. No evidence of DVT in the right lower extremity
[2025-02-16 13:00] VITALS: BP 176/111; PULSE 85; RESP 16; TEMP 98
[2025-02-16] MEDS ORDERED: magnesium hydroxide 30ml (MOM) UD suspension PO PRN (14:35)
[2025-02-16] MEDS ORDERED: acetaminophen 325mg tablet PO PRN (14:35)
[2025-02-16] MEDS ORDERED: potassium Cl 40MEQ/1/2NS 520ml 520 ML IV PRN (14:35)
[2025-02-16] MEDS ORDERED: morphine 2 MG/ML inj. syringe IV PRN (14:35)
[2025-02-16] MEDS ORDERED: bisacodyl 10mg suppository rectal RC PRN (14:35)
[2025-02-16] MEDS ORDERED: mag hydrox/Alum hydrox/simeth 30ml oral suspension PO PRN (14:35)
[2025-02-16] MEDS ORDERED: magnesium sulf-water 2g/50mL 50 ML IV PRN (14:35)
[2025-02-16] MEDS ORDERED: magnesium sulf-water 4G/100mL 100 ML IV PRN (14:35)
[2025-02-16] MEDS ORDERED: potassium Cl 20 mEq SR tablet PO PRN ×2 (14:35)
[2025-02-16] MEDS: normal saline 1000ml 1,000 ML IV SCH (14:55)
[2025-02-16 14:56] LABS: HEMOGLOBIN A1C 5.1 % (4.5-6.2)
[2025-02-16 15:02] LABS: MAGNESIUM 1.6 MG/DL (1.5-2.4)
[2025-02-16 15:03] LABS: PRO BRAIN NATRIURETIC PEPTIDE > 30000 PG/ML (0-125)
[2025-02-16] MEDS: HYDROmorphone inj. 0.5 MG/0.5 ML DISP.SYRIN IV PRN (15:10)
[2025-02-16 16:00] LABS: BASOPHILS % (AUTO) 0.5 % (0-1); EOSINOPHILS % (AUTO) 0.3 % (0-6); HEMOGLOBIN 7.7 g/dl (14.0-17.9); LYMPHOCYTES # (AUTO) 0.7 X10'3 (1.1-4.8); LYMPHOCYTES % (AUTO) 9.4 % (21-51); MEAN CORPUSCULAR HEMOGLOBIN 29.6 PG (27.0-31.0); MEAN CORPUSCULAR HGB CONC 30.8 g/dL (33.0-36.5); MEAN CORPUSCULAR VOLUME 96.2 FL (78-98); MONOCYTES # (AUTO) 0.5 X10'3 (0-0.9); MONOCYTES % (AUTO) 6.3 % (2-12); NEUTROPHILS # (AUTO) 6.3 X10'3 (1.8-7.7); NEUTROPHILS % (AUTO) 83.5 % (42-75); PLATELET COUNT 222 X10'3 (140-440); RED CELL DISTRIBUTION WIDTH 16.3 % (11.5-14.5); WHITE BLOOD COUNT 7.5 X10'3 (4.5-11.0)
[2025-02-16 16:17] VITALS: BP 186/112; PULSE 90; RESP 20; TEMP 97.4; O2SAT 100
--- NOTE | 2025-02-16 16:24 | RADIOLOGY REPORT ---
EXAM: CT CT LOWER EXTREMITY INDICATION: Hematoma; right calf blunt injury with leg swelling and discoloration TECHNIQUE: Axial images of right lower extremity have been obtained along with coronal and sagittal r eformatted images. All CT scans at this facility use dose modulation, iterative reconstruction, and/o r weight based dosing when appropriate to reduce radiation dose to as low as reasonably achievable. COMPARISON: None FINDINGS: BONES: Subcutaneous tissue edema along the medial aspect of the proximal thigh and lateral thigh exte nding to the calf. Area of high attenuation along the superficial subcutaneous fat measuring 7.8 x 2. 5 cm along the right lateral proximal thigh. Surrounding skin thickening. Imaging finding may be com patible with hematoma and superimposed infection not excluded. MUSCLES: No abnormal attenuation. JOINT SPACES: No joint effusion. TENDONS/LIGAMENTS: Intact. OTHER: Vascular calcifications. IMPRESSION: 1. Hematoma along the right lateral calf measuring up to 7.8 cm 2. Extensive additional areas of subcutaneous tissue edema extending up to the thigh which may repres ent soft tissue contusion versus superimposed cellulitis. No drainable fluid collection. No knee reina int effusion.
[2025-02-16] MEDS: metoprolol succinate 25mg (24-HOUR) SR. Tablet PO SCH (17:22)
[2025-02-16] MEDS: lisinopril 20mg tablet PO SCH (17:23)
[2025-02-16] MEDS: HYDROcodone/acetaminophen 5mg/325mg tablet PO PRN (17:23)
[2025-02-16] MEDS: amLODIPine 5mg tablet PO SCH (17:24)
[2025-02-16 18:15] LABS: APTT 27 SECONDS (22-32); INR 1.1 INR; PROTHROMBIN TIME 11.3 SECONDS (9.0-12.0)
[2025-02-16 18:30] VITALS: BP 164/91; PULSE 91; RESP 22; TEMP 99.6; O2SAT 99
[2025-02-16] MEDS ORDERED: aspirin 81mg, enteric-coated 1 TAB TABLET.DR PO SCH (19:15)
[2025-02-16 19:45] VITALS: BP 154/84; PULSE 84
[2025-02-16] MEDS: K and/or MAG REPLACEMENT MC SCH (20:00)
--- NOTE | 2025-02-16 20:02 | ELECTROCARDIOGRAPH REPORT ---
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 CORY Cash Measurements Intervals [place] Rate: 92 P: 65 HI: 129 QRS: -20 QRSD: 114 T: 203 QT: 333 QTc: 412 Interpretive Statements Sinus rhythm Left atrial enlargement LVH with secondary repolarization abnormality Baseline wander in lead(s) V2 Electronically Signed On 02-17-2025 18:23:[address] CORY Cash Please click the below link to view image of tracing.
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
[2025-02-16] MEDS: magnesium oxide 400mg tablet PO SCH (20:50)
[2025-02-16] MEDS: metoprolol tartrate 12.5mg (1/2 tablet) PO SCH (20:50)
[2025-02-16] MEDS: docusate sod 100mg capsule PO SCH (20:50)
[2025-02-16] MEDS: tacrolimus anhydrous 1mg capsule PO SCH (20:51)
[2025-02-16] MEDS: predniSONE 5mg tablet PO SCH (20:51)
[2025-02-16] MEDS: mycophenolate mofetil 250mg capsule PO SCH (20:51)
[2025-02-16 21:56] LABS: % IRON SATURATION 13 % (11-46); IRON 25 UG/DL (53-167); TOTAL IRON BINDING CAPACITY 198 UG/DL (259-388)
[2025-02-16 22:00] VITALS: BP 151/93; PULSE 83; RESP 16; TEMP 98; O2SAT 99
[2025-02-16 22:09] LABS: CREATINE KINASE 31 U/L (39-308); FERRITIN 206 NG/ML (26-388)
[2025-02-16] MEDS: ampicill/sulbac 1.5gm/NS 100ml 100 ML IV SCH (22:18)
[2025-02-16] MEDS: cinacalcet 30mg tablet PO SCH (22:18)
[2025-02-17] VITALS (10 sets, daily range): BP systolic 124–146; BP diastolic 75–89; PULSE 74–88; RESP 15–16; TEMP 98–98.9; O2SAT 98
[2025-02-17] MEDS: ondansetron/PF 4mg/2ml inj IV PRN (03:47)
[2025-02-17 07:23] LABS: BASOPHILS % (AUTO) 0.3 % (0-1); EOSINOPHILS % (AUTO) 0.3 % (0-6); HEMOGLOBIN 7.1 g/dl (14.0-17.9); LYMPHOCYTES # (AUTO) 0.4 X10'3 (1.1-4.8); LYMPHOCYTES % (AUTO) 6.3 % (21-51); MEAN CORPUSCULAR HGB CONC 32.1 g/dL (33.0-36.5); MEAN CORPUSCULAR VOLUME 93.3 FL (78-98); MEAN PLATELET VOLUME 9.4 FL (7.4-10.4); MONOCYTES # (AUTO) 0.4 X10'3 (0-0.9); MONOCYTES % (AUTO) 6.1 % (2-12); PLATELET COUNT 206 X10'3 (140-440); RED BLOOD COUNT 2.35 X10'6 (4.70-6.10); WHITE BLOOD COUNT 6.9 X10'3 (4.5-11.0)
[2025-02-17 07:50] LABS: ALANINE AMINOTRANSFERASE 14 U/L (12-78); ALBUMIN 2.7 G/DL (3.4-5.0); ALBUMIN/GLOBULIN RATIO 0.9 (1.1-1.5); ALKALINE PHOSPHATASE 69 IU/L (46-116); ANION GAP 12 (8-16); ASPARTATE AMINO TRANSFERASE 12 U/L (10-37); BILIRUBIN,TOTAL 0.7 MG/DL (0.1-1.0); BLOOD UREA NITROGEN 41 MG/DL (7-18); BUN/CREATININE RATIO 12.4 (10.0-20.0); CALCIUM 8.2 MG/DL (8.5-10.1); CHLORIDE 111 MMOL/L (99-107); CHOL/HDL RATIO 2.3 (0.00-4.99); CHOLESTEROL 92 MG/DL (0-200); CREATININE 3.31 MG/DL (0.60-1.10); GLUCOSE 105 MG/DL (70-104); HDL CHOLESTEROL 40 MG/DL (35-60); LDL CHOLESTEROL 41 MG/DL (50-100); MAGNESIUM 1.4 MG/DL (1.5-2.4); POTASSIUM 5.6 MMOL/L (3.5-5.1); SODIUM 141 MMOL/L (135-145); TOTAL CARBON DIOXIDE 18.4 MMOL/L (24-32); TOTAL PROTEIN 5.8 G/DL (6.4-8.2); TRIGLYCERIDES 66 MG/DL (20-135); eCRCL 30 ML/MIN; eGFR 19 ML/MIN
[2025-02-17] MEDS: magnesium Cl slow-release 64mg tablet PO PRN (08:41)
[2025-02-17] MEDS: febuxostat 40mg tablet PO SCH (10:18)
[2025-02-17] MEDS: SODIUM ZIRCONIUM CYCLOSILICATE 10 GM POWD.PACK PO SCH (10:30)
--- NOTE | 2025-02-17 18:05 | CARDIOLOGY REPORT ---
APPROVED REPORT EXAM: Comprehensive 2D, Doppler, and color-flow Echocardiogram. Patient Location: [facility] Blood Pressure: 128/95 mmHg Heart Rate: 73 bpm Rhythm: NSR Indications Abnormal EKG Tipple Repairer is BV. Shailesh MD Previous echo 02/20/16 [facility] 65% EF ; m MR TR 2D Dimensions LA Diam4.1 cm IVSd 1.3 (0.7-1.1cm) LVDd 5.7 cm PWd 1.3 (0.7-1.1cm) IVSs 1.9 (0.8-1.2cm) LVDs 3.7 (2.5-4.0cm) Aortic Root(2D) 3.3 cm PWs 1.8 (0.8-1.2cm) LVOT Diameter 2.25 (1.8-2.4cm) LVEF(%) 65.2 (>50%) Ao Asc Diam.3.59 cmIVC 25.41 mm FS (%) 36.2 % SV 105.9 ml CO 7.9 L/min M-Mode Dimensions MV EPSS 0.8 (<0.5cm) Aortic Valve AoV Peak Boris. 221.5 cm/s AoV VTI 43.9 cm AO Peak GR. 19.6 mmHg AO Mean GR. 10 mmHg LVOT VTI 30.09 cm LVOT Peak Boris. 131.5 cm/s JENIFER(VTI)/BSA 2.74 cm2/m2 JENIFER (VTI) 2.74 cm2 Mitral Valve MV E Velocity 148.6 cm/s MV Peak Gr. 10 mmHg MV DECEL TIME 236 ms MV A Velocity 111.0 cm/s MV PHT 72 ms E/A Ratio 1.3 MVA (PHT) 3.06 cm2 MV PYle996.4 cm/s TDI Medial E' P. V 9.01 cm/s E/Medial E' 16.5 Tricuspid Valve TR P. Velocity 287 cm/s RAP ESTIMATE 10 mmHg TR Peak Gr. 33 mmHg RVSP 43 mmHg Pulmonary Vein S1 Velocity 78.7 cm/s D2 Velocity 49.5 cm/s PVa Pplgpquh11.5 cm/s PVa Sqpcoyti26 msec LEFT VENTRICLE LV is mildly dilated with mild concentric hypertrophy. Overall systolic function appears normal. Over all LVEF is 60-65%. RIGHT VENTRICLE RV is normal size and function. RVSP is estimated at 43 mmHG. ATRIA Left atrium is mildly dilated. AORTIC VALVE Trileaflet AV appears sclerotic without stenosis. Trace insufficiency. MITRAL VALVE MV is thickened with mild annular calcification and no stenosis. Mild mitral regurgitation. TRICUSPID VALVE The tricuspid valve is normal in structure. Mild tricuspid regurgitation. PULMONIC VALVE The pulmonary valve is normal in structure. Trace pulmonic regurgitation. GREAT VESSELS The aortic root is normal in size. Ascending aorta measured at 3.6 cm. IVC is dilated and collapses g reater than 50% with inspiration. PERICARDIUM There is no pericardial effusion. Other Information Study Quality: Adequate Conclusion Overall LVEF is 60-65%. LV is mildly dilated with mild concentric hypertrophy. Overall systolic function appears normal. RV is normal size and function. RVSP is estimated at 43 mmHG. Trileaflet AV appears sclerotic without stenosis. Trace insufficiency. Mild mitral regurgitation. Mild tricuspid regurgitation. Trace pulmonic regurgitation. There is no pericardial effusion.
[2025-02-17 18:31] LABS: HEMATOCRIT 25.6 % (42.0-52.0); HEMOGLOBIN 8.1 g/dl (14.0-17.9); MEAN CORPUSCULAR HEMOGLOBIN 29.5 PG (27.0-31.0); MEAN CORPUSCULAR HGB CONC 31.7 g/dL (33.0-36.5); MEAN CORPUSCULAR VOLUME 93.1 FL (78-98); MEAN PLATELET VOLUME 9.1 FL (7.4-10.4); PLATELET COUNT 212 X10'3 (140-440); RED BLOOD COUNT 2.75 X10'6 (4.70-6.10); RED CELL DISTRIBUTION WIDTH 16.6 % (11.5-14.5); WHITE BLOOD COUNT 6.2 X10'3 (4.5-11.0)
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
[2025-02-18] VITALS (10 sets, daily range): BP systolic 118–155; BP diastolic 70–93; PULSE 61–81; RESP 15–18; TEMP 98–98.4; O2SAT 98–100
[2025-02-18 04:00] LABS: BASOPHILS % (AUTO) 0.5 % (0-1); EOSINOPHILS # (AUTO) 0.1 X10'3 (0-0.9); EOSINOPHILS % (AUTO) 1.1 % (0-6); LYMPHOCYTES # (AUTO) 0.8 X10'3 (1.1-4.8); LYMPHOCYTES % (AUTO) 14.1 % (21-51); MEAN CORPUSCULAR HEMOGLOBIN 30.1 PG (27.0-31.0); MEAN CORPUSCULAR HGB CONC 32.7 g/dL (33.0-36.5); MEAN CORPUSCULAR VOLUME 92.1 FL (78-98); MEAN PLATELET VOLUME 8.9 FL (7.4-10.4); MONOCYTES # (AUTO) 0.5 X10'3 (0-0.9); MONOCYTES % (AUTO) 8.3 % (2-12); NEUTROPHILS # (AUTO) 4.5 X10'3 (1.8-7.7); PLATELET COUNT 199 X10'3 (140-440); RED BLOOD COUNT 2.26 X10'6 (4.70-6.10); WHITE BLOOD COUNT 5.9 X10'3 (4.5-11.0)
[2025-02-18 04:08] LABS: HEMATOCRIT 20.8 % (42.0-52.0); HEMOGLOBIN 6.8 g/dl (14.0-17.9)
[2025-02-18] MEDS: atorvastatin 10mg tablet PO SCH (08:20)
[2025-02-18 08:28] LABS: HEMATOCRIT 27.5 % (42.0-52.0); HEMOGLOBIN 8.9 g/dl (14.0-17.9); MEAN CORPUSCULAR HEMOGLOBIN 29.4 PG (27.0-31.0); MEAN CORPUSCULAR HGB CONC 32.3 g/dL (33.0-36.5); MEAN PLATELET VOLUME 8.8 FL (7.4-10.4); PLATELET COUNT 210 X10'3 (140-440); RED BLOOD COUNT 3.02 X10'6 (4.70-6.10); RED CELL DISTRIBUTION WIDTH 15.9 % (11.5-14.5); WHITE BLOOD COUNT 5.9 X10'3 (4.5-11.0)
[2025-02-18 08:49] LABS: ALANINE AMINOTRANSFERASE 12 U/L (12-78); ALBUMIN 2.5 G/DL (3.4-5.0); ALBUMIN/GLOBULIN RATIO 0.8 (1.1-1.5); ALKALINE PHOSPHATASE 67 IU/L (46-116); ANION GAP 11 (8-16); ASPARTATE AMINO TRANSFERASE 5 U/L (10-37); BILIRUBIN,TOTAL 0.6 MG/DL (0.1-1.0); BLOOD UREA NITROGEN 44 MG/DL (7-18); CALCIUM 8.1 MG/DL (8.5-10.1); CHLORIDE 114 MMOL/L (99-107); CREATININE 3.38 MG/DL (0.60-1.10); GLUCOSE 98 MG/DL (70-104); MAGNESIUM 1.7 MG/DL (1.5-2.4); POTASSIUM 4.7 MMOL/L (3.5-5.1); SODIUM 143 MMOL/L (135-145); TOTAL PROTEIN 5.6 G/DL (6.4-8.2); eCRCL 30 ML/MIN; eGFR 19 ML/MIN
--- NOTE | 2025-02-18 11:03 | VASCULAR REPORT ---
Right Lower Extremity Arterial Duplex Clinical History: Pain Comparison: [facility] VL ARTERIAL on DOS: 07/07/23 Technique: Duplex Doppler evaluation including color Doppler and spectral/pulsed waveform analysis of the lower extremity arteries was performed. Findings: RIGHT: Peak systolic velocities are less than 150 cm/s The waveforms are triphasic with diastolic flow. Right lateral calf hematoma is present. IMPRESSION: No hemodynamically significant stenosis based on peak systolic velocity criteria. Right lateral calf hematoma is present. REFERENCE VALUES, [facility] ([facility]) vascular Imaging Lab Criteria: Peak systolic velocity rang es (in cm/sec) are as follows: <150 cm/s - <20 % stenosis 150-200 cm/s - 20-49% stenosis 200-300 cm/s - 50-75% stenosis >300 cm/s -> 75% stenosis
[2025-02-18 17:21] LABS: HEMATOCRIT 27.9 % (42.0-52.0); HEMOGLOBIN 9.2 g/dl (14.0-17.9); MEAN CORPUSCULAR HEMOGLOBIN 29.7 PG (27.0-31.0); MEAN CORPUSCULAR HGB CONC 32.8 g/dL (33.0-36.5); MEAN CORPUSCULAR VOLUME 90.6 FL (78-98); PLATELET COUNT 213 X10'3 (140-440); RED BLOOD COUNT 3.08 X10'6 (4.70-6.10); RED CELL DISTRIBUTION WIDTH 16.1 % (11.5-14.5); WHITE BLOOD COUNT 7.2 X10'3 (4.5-11.0)
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
[2025-02-19 01:37] LABS: BASOPHILS % (AUTO) 0.6 % (0-1); EOSINOPHILS # (AUTO) 0.1 X10'3 (0-0.9); EOSINOPHILS % (AUTO) 1.1 % (0-6); HEMATOCRIT 25.9 % (42.0-52.0); HEMOGLOBIN 8.6 g/dl (14.0-17.9); LYMPHOCYTES # (AUTO) 0.8 X10'3 (1.1-4.8); LYMPHOCYTES % (AUTO) 12.4 % (21-51); MEAN CORPUSCULAR HEMOGLOBIN 29.9 PG (27.0-31.0); MEAN CORPUSCULAR HGB CONC 33.1 g/dL (33.0-36.5); MEAN CORPUSCULAR VOLUME 90.5 FL (78-98); MEAN PLATELET VOLUME 8.7 FL (7.4-10.4); MONOCYTES # (AUTO) 0.5 X10'3 (0-0.9); MONOCYTES % (AUTO) 8.6 % (2-12); NEUTROPHILS # (AUTO) 4.8 X10'3 (1.8-7.7); NEUTROPHILS % (AUTO) 77.3 % (42-75); PLATELET COUNT 204 X10'3 (140-440); RED BLOOD COUNT 2.86 X10'6 (4.70-6.10); WHITE BLOOD COUNT 6.2 X10'3 (4.5-11.0)
[2025-02-19 06:06] VITALS: BP 165/92; PULSE 79; RESP 20; TEMP 97.8; O2SAT 99
[2025-02-19 07:11] LABS: ALANINE AMINOTRANSFERASE 13 U/L (12-78); ALBUMIN 2.5 G/DL (3.4-5.0); ALBUMIN/GLOBULIN RATIO 0.8 (1.1-1.5); ALKALINE PHOSPHATASE 66 IU/L (46-116); ANION GAP 12 (8-16); ASPARTATE AMINO TRANSFERASE 9 U/L (10-37); BILIRUBIN,TOTAL 0.6 MG/DL (0.1-1.0); BLOOD UREA NITROGEN 47 MG/DL (7-18); BUN/CREATININE RATIO 13.5 (10.0-20.0); CALCIUM 7.8 MG/DL (8.5-10.1); CHLORIDE 112 MMOL/L (99-107); CREATININE 3.48 MG/DL (0.60-1.10); GLUCOSE 84 MG/DL (70-104); MAGNESIUM 1.5 MG/DL (1.5-2.4); POTASSIUM 4.9 MMOL/L (3.5-5.1); SODIUM 142 MMOL/L (135-145); TOTAL CARBON DIOXIDE 17.8 MMOL/L (24-32); TOTAL PROTEIN 5.6 G/DL (6.4-8.2); eCRCL 29 ML/MIN; eGFR 18 ML/MIN
[2025-02-19 07:24] VITALS: RESP 20; O2SAT 99
[2025-02-19 08:59] LABS: HEMATOCRIT 27.5 % (42.0-52.0); HEMOGLOBIN 8.9 g/dl (14.0-17.9); MEAN CORPUSCULAR HEMOGLOBIN 29.4 PG (27.0-31.0); MEAN CORPUSCULAR HGB CONC 32.3 g/dL (33.0-36.5); MEAN PLATELET VOLUME 9.4 FL (7.4-10.4); PLATELET COUNT 221 X10'3 (140-440); RED BLOOD COUNT 3.02 X10'6 (4.70-6.10); RED CELL DISTRIBUTION WIDTH 16.2 % (11.5-14.5); WHITE BLOOD COUNT 5.8 X10'3 (4.5-11.0)
[2025-02-19 10:10] VITALS: BP 137/80; PULSE 78; RESP 16; TEMP 97.9; O2SAT 97
[2025-02-19] MEDS: sodium bicarbonate 1meq/ml inj 150 ML in dextrose 5%-water 1,000 ML IV SCH (12:43)
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
[2025-02-19 17:35] LABS: HEMATOCRIT 29.9 % (42.0-52.0); HEMOGLOBIN 9.8 g/dl (14.0-17.9); MEAN CORPUSCULAR HEMOGLOBIN 29.8 PG (27.0-31.0); MEAN CORPUSCULAR HGB CONC 32.6 g/dL (33.0-36.5); MEAN CORPUSCULAR VOLUME 91.1 FL (78-98); PLATELET COUNT 230 X10'3 (140-440); RED BLOOD COUNT 3.29 X10'6 (4.70-6.10); RED CELL DISTRIBUTION WIDTH 15.8 % (11.5-14.5); WHITE BLOOD COUNT 6.6 X10'3 (4.5-11.0)
[2025-02-19] MEDS: calcium acetate 667mg (PhosLO) capsule PO SCH (17:40)
[2025-02-19 18:00] VITALS: BP 118/73; PULSE 70; RESP 17; TEMP 97.9; O2SAT 98
[2025-02-19 20:00] VITALS: RESP 16; O2SAT 98
[2025-02-19] MEDS: SODIUM ZIRCONIUM CYCLOSILICATE 10 GM POWD.PACK PO SCH (20:09)
[2025-02-19] MEDS: citric acid/sodium citrate 15ml oral solution PO SCH (20:09)
[2025-02-19 22:00] VITALS: BP 117/84; PULSE 71; RESP 18; TEMP 97.7; O2SAT 99
[2025-02-20 06:00] VITALS: BP 145/86; PULSE 79; RESP 15; TEMP 97.8; O2SAT 98
[2025-02-20 06:58] LABS: BASOPHILS % (AUTO) 0.6 % (0-1); EOSINOPHILS # (AUTO) 0.1 X10'3 (0-0.9); EOSINOPHILS % (AUTO) 1.4 % (0-6); HEMATOCRIT 26.2 % (42.0-52.0); HEMOGLOBIN 8.6 g/dl (14.0-17.9); LYMPHOCYTES # (AUTO) 0.8 X10'3 (1.1-4.8); LYMPHOCYTES % (AUTO) 13.8 % (21-51); MEAN CORPUSCULAR HEMOGLOBIN 29.9 PG (27.0-31.0); MEAN CORPUSCULAR HGB CONC 32.9 g/dL (33.0-36.5); MEAN CORPUSCULAR VOLUME 90.8 FL (78-98); MEAN PLATELET VOLUME 8.8 FL (7.4-10.4); MONOCYTES # (AUTO) 0.5 X10'3 (0-0.9); MONOCYTES % (AUTO) 9.2 % (2-12); NEUTROPHILS # (AUTO) 4.2 X10'3 (1.8-7.7); PLATELET COUNT 205 X10'3 (140-440); RED BLOOD COUNT 2.89 X10'6 (4.70-6.10); WHITE BLOOD COUNT 5.6 X10'3 (4.5-11.0)
[2025-02-20 07:10] LABS: ALANINE AMINOTRANSFERASE 11 U/L (12-78); ALBUMIN 2.3 G/DL (3.4-5.0); ALBUMIN/GLOBULIN RATIO 0.8 (1.1-1.5); ALKALINE PHOSPHATASE 63 IU/L (46-116); ANION GAP 11 (8-16); ASPARTATE AMINO TRANSFERASE 5 U/L (10-37); BILIRUBIN,TOTAL 0.5 MG/DL (0.1-1.0); BLOOD UREA NITROGEN 49 MG/DL (7-18); BUN/CREATININE RATIO 14.6 (10.0-20.0); CALCIUM 7.5 MG/DL (8.5-10.1); CHLORIDE 111 MMOL/L (99-107); CREATININE 3.36 MG/DL (0.60-1.10); GLUCOSE 94 MG/DL (70-104); MAGNESIUM 1.5 MG/DL (1.5-2.4); POTASSIUM 4.1 MMOL/L (3.5-5.1); SODIUM 144 MMOL/L (135-145); TOTAL CARBON DIOXIDE 22.4 MMOL/L (24-32); TOTAL PROTEIN 5.1 G/DL (6.4-8.2); eCRCL 30 ML/MIN; eGFR 19 ML/MIN
[2025-02-20 08:00] VITALS: RESP 18; O2SAT 98
[2025-02-20 10:00] VITALS: BP 114/78; PULSE 77; RESP 18; TEMP 98.3; O2SAT 98
[2025-02-20] MEDS: normal saline 500ml IV soln 500 ML IV ONE (10:00)
[2025-02-20 10:19] VITALS: BP_SYST 114; PULSE 77
--- NOTE | 2025-02-20 11:44 | PROGRESS NOTE ---
Progress Note Dictate Providers to CC ~ Antibiotic Ordered?: Yes Subjective Subjective Reports doing well today, states that the leg pain and pressure are improved, still some warmth, eating and drinking well, present for the conversation, had several questions regarding follow-up in the clinic, questions were answered he will follow-up in clinic in 2 weeks Objective Vitals Vital Signs Date Time Temp Pulse Resp B/P (MAP) Pulse Ox O2 Delivery O2 Flow Rate FiO2 02/20/25 10:19 77 02/20/25 08:00 18 98 Room Air 02/20/25 06:00 97.8 145/86 (105) 02/19/25 20:00 0.0 General: Well appearing, well nourished, in no distress. Oriented x 3, Neck: Supple, without JVD Heart: Regular rate and rhythm, no murmur Lungs: Clear to auscultation and percussion Abdomen: Bowel sounds normal, no tenderness, organomegaly, masses, or hernia Extremities: No cyanosis, R 2+ edema, peripheral pulses intact, erythema appears improved Neurologic: Sensation to touch, normal. DTRs normal moves all extremities spontaneously. Lab Results: 02/20/25 0623 02/20/25 0623 Coagulation Studies Laboratory Tests Test 02/16/25 15:39 02/18/25 08:18 Prothrombin Time 11.3 SECONDS (9.0-12.0) INR International Normalized Ratio 1.1 INR Activated Partial Thromboplast Time 27 SECONDS (22-32) Coagulation Comments Other Results I & O 02/20/25 07:00 Intake Total 2560 ml Output Total 2700 ml Balance -140 ml Intake Oral 1960 ml IV Total 600 ml Output Urine Total 2700 ml # Bowel Movements 1 Problem\Assessment\Plan Problems/Diagnosis: (1) Acidemia Assessment & Plan: Most consistent with his CKD 4, with some contribution from lower limb ischemia certainly but I think his CKD 4 is the major contributor, would recommend we continue Bicitra 30 mL 3 times a day, goal HCO3/CO2 greater than 22 (2) Acute kidney injury superimposed on CKD Assessment & Plan: ALBER on CKD 4 and a transplanted kidney from a cadaver in 2012, he is at or near his baseline, has some minor electrolyte abnormalities and acidemia secondary to his advanced CKD, we will obtain serology for his level of CKD 4 and treat all comorbidities as indicated Anemia-CKD, I recommend you obtain iron profile if it has not been done, he is likely to not need iron, recent transfusion had approximately 200 to 250 mg of iron per unit of transfused packed RBCs, recommend erythropoietin 10,000 units every other day while in the hospital, hemoglobin goal between 10 and 11.5, recommend stool occult blood if it has not been done, a reticulocyte count would certainly be useful Hyperphosphatemia, phosphorus goal less than 5.5, he is not on a renal diet I would do that as soon as possible, calcium acetate 667 mg with meals and snacks Hyperkalemia, recommend Lokelma 10 g up to 3 times daily if he is above 5.0, routine monitoring, this is likely secondary to his advanced CKD, if he is on spironolactone or an NIDHI and ARB potassium may be more difficult to control in this advanced CKD and would recommend just preemptively giving Lokelma with either these 2 medications and monitoring his potassium closely, another option could be if he becomes hypervolemic and volume is a concern furosemide 80 to 120 mg twice daily will certainly lower his potassium as well Recommend you obtain vitamin D, PTH levels if they have not been done at this time (3) Electrolyte abnormality Assessment & Plan: Hyperkalemia, hyperphosphatemia, acidemia consistent with ALBER on CKD 3B/4, see ALBER above JACOBY ANGELES III DO Feb 20, 2025 11:44
[2025-02-20] MEDS: sodium ferric gluc complex inj 250 MG in normal saline 100ml IV soln 100 ML IV SCH (13:41)
[2025-02-20 13:51] VITALS: RESP 16
[2025-02-20] MEDS ORDERED: AMOX-580 PO (15:38)
[2025-02-20] MEDS ORDERED: ASPI-1265 PO (15:41)
[2025-02-21] MEDS ORDERED: EPOETIN ALFA-EPBX 20,000 UNIT/ML 1 ML MDV SQ SCH (08:00)
== END 2025-02-20 17:55 | disposition home health service (06) | DRG 602 ==
LOC: ER 05:22 → UNDOADMIN 10:42 → ED HOLD 10:42 → ORTHO 4S 16:02
PROVIDERS: ADMIT Family Medicine; ATTEND Family Medicine
PROC: 30233N1 Transfusion of Nonautologous Red Blood Cells into Peripheral Vein, Percutaneous Approach (ICD-10-PCS; principal; 2025-02-16)
DX: L03.115 Cellulitis of right lower limb (principal); I21.A1 Myocardial infarction type 2; Z94.0 Kidney transplant status; D84.9 Immunodeficiency, unspecified; N17.9 Acute kidney failure, unspecified; N18.4 Chronic kidney disease, stage 4 (severe); T86.19 Other complication of kidney transplant; E87.20 Acidosis, unspecified; E44.1 Mild protein-calorie malnutrition; S80.11XA Contusion of right lower leg, initial encounter; X58.XXXA Exposure to other specified factors, initial encounter; M10.9 Gout, unspecified; I12.9 Hypertensive chronic kidney disease with stage 1 through stage 4 chronic kidney disease, or unspecified chronic kidney disease; Y83.8 Other surgical procedures as the cause of abnormal reaction of the patient, or of later complication, without mention of misadventure at the time of the procedure; E83.39 Other disorders of phosphorus metabolism; E87.5 Hyperkalemia; I25.10 Atherosclerotic heart disease of native coronary artery without angina pectoris; E88.09 Other disorders of plasma-protein metabolism, not elsewhere classified; E78.5 Hyperlipidemia, unspecified; D50.0 Iron deficiency anemia secondary to blood loss (chronic); Z68.27 Body mass index [BMI] 27.0-27.9, adult; F32.A Depression, unspecified; Y93.89 Activity, other specified; Y92.89 Other specified places as the place of occurrence of the external cause; Y99.8 Other external cause status; Z98.61 Coronary angioplasty status
CPT/HCPCS: 36415; 36430; 73700; 80048; 80053; 80061; 80197; 82550; 82728; 83036; 83540; 83550; 83605; 83735; 83874; 83880; 83970; 84145; 84484; 85025; 85027; 85240; 85250; 85610; 85651; 85730; 86140; 86644; 86885; 86900; 86901; 86920; 86945; 87040; 87081; 93005; 93306; 93926; 93971; 96361; 96365; 97116; 97161; 97530; 99291; G0378; J0295; J0604; J1171; J2405; J2916; J3490; J7030; J7040; J7070; J7120; J7507; J7512; J7517; P9016

== ENCOUNTER 2025-08-18 05:10 | Inpatient (IN) | payer OTHER ==
[2025-08-18] VITALS (20 sets, daily range): BP systolic 91–123; BP diastolic 56–81; PULSE 58–114; RESP 13–24; TEMP 97.7–98.4; O2SAT 99–100
[~2025-08-18] VITALS: Ht 190.5 cm; Wt 98.5 kg
[~2025-08-18 05:10] MED LIST changes: +ASPI-1265 PO; -ASPI81TA44 PO; -CLOP75TA34 PO; -PHOS250T5 PO
--- NOTE | 2025-08-18 05:23 | ELECTROCARDIOGRAPH REPORT ---
[facility] Test Date: 2025-08-18 Test Time: 05:20:45 Pat Name: SANJUANA HAILE Department: EMERGENCY ROOM Room: Gender: M Lan Support Specialist: : [id number] Requested By: LAXMI BLACK Order Number: [id number] Reading MD: Dr. Laxmi Black Measurements Intervals [place] Rate: 143 P: 48 RI: 110 QRS: -62 QRSD: 184 T: 95 QT: 379 QTc: 585 Interpretive Statements Sinus tachycardia Nonspecific IVCD with LAD LVH with secondary repolarization abnormality Electronically Signed On 08-18-2025 5:40:[address] Laxmi Black Please click the below link to view image of tracing.
--- NOTE | 2025-08-18 05:36 | RADIOLOGY REPORT ---
CHEST RADIOGRAPH Indication: CHEST PAIN Technique: DI CHEST,SINGLE VIEW Comparison: None FINDINGS: The cardiac silhouette is enlarged.. The lungs demonstrate no pulmonary airspace consolidation. The pulmonary vasculature is unremarkable. There is no pleural effusion. There is no pneumothorax. IMPRESSION: No pulmonary airspace consolidation. Cardiomegaly
--- NOTE | 2025-08-18 05:48 | ELECTROCARDIOGRAPH REPORT ---
[facility] Test Date: 2025-08-18 Test Time: 05:46:27 Pat Name: SANJUANA MARQUAND Department: [facility]- Patient ID: [facility]-[id number] Room: Gender: M Software Asset Management Analyst: : 1970 Requested By: LAXMI BLACK Order Number: [id number] Reading MD: Dr. Laxmi Black Measurements Intervals [place] Rate: 90 P: 66 WI: 157 QRS: -39 QRSD: 127 T: 215 QT: 373 QTc: 457 Interpretive Statements Sinus rhythm Ventricular premature complex Probable left atrial enlargement Nonspecific IVCD with LAD Repol abnrm, severe global ischemia (LM/MVD) Electronically Signed On 08-18-2025 6:44:[address] Laxmi Black Please click the below link to view image of tracing.
--- NOTE | 2025-08-18 05:52 | Physician Documentation ---
History of Present Illness ~ Stated Complaint: CP Time Seen by MD: 05:20 OK to notify your PCP?: Yes Primary Medical Doctor: Dr. Kirill Sherwood Source: patient, family, RN/MD, EMS, RN notes reviewed, EMS notes reviewed, old records Mode of Arrival: EMS Exam Limitations: no limitations HPI This patient history of was obtained by the patient post cardiac arrest EMS as well as family. The patient states that he has a bilateral kidney transplant from [facility] 2001 1012. Patient states lately he has been having some chest pain with exertion. He has a echocardiogram by Dr. Adames that was reassuring and within normal limits. He states that tonight he started having chest pain again but this time he had pain in his jaw also radiating to his back and he then took a beta hilario and continued to have pain called EMS. EMS found the patient to be in rapid AFib with a RVR and transported the patient which he received four aspirins and nitroglycerin. The patient's initial pain was 9/10 and later was 5/10 received nitroglycerin and 3/10. Patient received nitroglycerin, aspirin Zofran and some saline. Patient was in V-tach. EMS was going to shock the patient but the patient was placed in a gurney and then went into cardiac arrest. And upon arrival patient decompensated requiring CPR and in cardiac arrest. Patient had three cardiac stents placed in the left anterior diagonal in 2011 Patient has had some recent bright red blood per rectum pending colonoscopy Onset: while asleep Available History: other (Renal transplant) Prehospital Care: IV, other medications Assoc Sign/Symptoms Pre Arrest: chest pain Medication Reconciliation Allergies: Coded Allergies: hydralazine (Unverified Allergy, Unknown, 08/18/25) Scheduled Aspirin (Aspirin EC), 1 TAB PO DAILY, (Reported) Atorvastatin Calcium* (Lipitor*), 10 MG PO MWF, (Reported) Calcitriol (Calcitriol), 1 CAP PO DAILY, (Reported) Cinacalcet Hcl* (Sensipar*), 30 MG PO HS, (Reported) Ergocalciferol (Vitamin D2) (Vitamin D2), 1 CAP PO Q7D, (Reported) Febuxostat (Uloric), 1 TAB PO DAILY, (Reported) Lisinopril (Lisinopril), 1 TAB PO HS, (Reported) Magnesium Oxide (Magnesium), 400 MG PO BID, (Reported) Metoprolol Tartrate (Lopressor tablet), 50 TAB PO QAM, (Reported) Mycophenolate Mofetil (Mycophenolate Mofetil), 750 MG PO BID, (Reported) Prednisone* (Prednisone*), 5 MG PO DAILY, (Reported) Tacrolimus Anhydrous (Prograf), 4 MG PO BID, (Reported) Past Medical History Past Medical History: Coronary Artery Disease, High Cholesterol, Hypertension, Kidney Transplant, Renal Disease, Gout Past Surgical History: other Other Past Surgical History: kidney transplant, cardiac stents Patient History: Patient reports no known family medical history. Alcohol Use: None Drug Use: none Lives with: S/O Lives In: Home Occupation: employed Review of Systems All Other Systems at this time: Reviewed and Negative Physical Exam Vital Signs: RN Vital Signs have been reviewed: Yes, Heart Rate: 114, Respiratory Rate: 14, Pulse Oximetry: 100 Physical Exam Post arrest exam General: The patient is well developed, well nourished, nontoxic appearing and is in no acute distress. Skin: [place], warm and dry with no rashes. HEENT: Head was normocephalic and atraumatic. Eyes - pupils equal, round, reactive to light and accommodation. Extraocular movements were intact. Conjunctivae were nonicteric. The mouth and oropharynx were clear with moist mucous membranes. There were no pharyngeal exudates or erythema. Neck: Supple and nontender. There was no jugular venous distention, lymphadenopathy, thyromegaly or masses. Chest: Clear to auscultation bilaterally without wheezes, rales or rhonchi. No accessory muscle use. No dullness to percussion. Heart: Rate regular rapid and rhythmic. S1, S2. No murmurs. Palpation of the chest wall was normal. No rubs or thrills. Abdomen: Soft, nontender and nondistended. Positive bowel sounds. No guarding or rebound. No hepatosplenomegaly or palpable masses. Extremities: No cyanosis, clubbing or edema. The patient moves all extremities. Pulses were equal and symmetric. Neurologic: Motor sensory grossly intact Psychologic: The patient was oriented to person, place and time. The patient demonstrated appropriate judgement and insight. Procedures Procedures Patient was placed in the bed. His color changed and was pale did not have a palpable pulse and CPR was started. Patient received multiple cardiac meds including calcium gluconate 1 g. Nitroglycerin amiodarone Protonix magnesium bolus as well as cardioversions x3. Amiodarone bolus and drip was given. Later patient was given a heparin drip he has significant ischemic changes throughout multiple cardiac rhythms such as V-tach VFib arrest, AFib with RVR now sinus tachycardia in the last evaluation was sinus rhythm. Patient has chronic anemia most likely secondary to his renal transplant. Patient's current hemoglobin is 8.2 hematocrit 26 which is on the low side for the patient but basically baseline. MCV is 94. WBCs 5.0 Continuous gas treater interpretation shows V-tach heart rate 200, abnormal., rapid AFib with RVR heart rate 170s, V-tach heart rate 200s, VFib, sinus tachycardia heart rate 110s, normal sinus rhythm heart rate 80s, abnormal cardiac rhythms my interpretation. Pulse oximetry monitor interpretation shows normal oxygenation at 94% room air, normal, my interpretation. ACLS ACLS performed: under my direction, see Code Blue flow sheet Cardioversion Cardioversion : Joules: 200 Resulting Rhythm: S Tach Tolerated Procedure Well?: yes, no complications Progress Progress Note 7:00 a.m. [facility] declined due to capacity 7:10 a.m. spoke with on-call cardiology Dr. Landaverde who confirmed the complexity of this patient and inappropriate for our facility 8:30 a.m. discussed the case with [facility] pending admission in [place] Results/Orders Reviewed/noted all lab results: Yes Results/Orders Orders - JUAN DONNELLY MD Chest,Single View (08/18/25 05:20) Type And Screen (08/18/25 05:20) Monitor (08/18/25 05:20) Oxygen (08/18/25 05:20) Saline Lock (08/18/25 05:20) Electrocardiogram (08/18/25 05:20) Electrocardiogram (08/18/25 05:41) Lrpc - Active Bleeding (08/18/25 07:27) Electrocardiogram (08/18/25 05:56) Completed Orders - JUAN DONNELLY MD Magnesium Sulf-Water 2g/50ml (Magnesium (08/18/25 05:20) Cbc/Diff (08/18/25 05:20) Chest,Single View (08/18/25 05:20) Pantoprazole 40mg Iv (Protonix 40mg Iv) (08/18/25 05:20) Amiodarone/D5 360mg/200ml Bag (Nexterone (08/18/25 05:20) Nitroglycerin 0.4mg/Hr Patch (Nitro-Dur (08/18/25 05:20) Normal Saline 1000ml (0.9% Sodium Chlori (08/18/25 05:20) Electrocardiogram (08/18/25 05:20) Hs Troponin I W Calculations (08/18/25 05:20) Calcium Gluc 1gm/50ml Nacl,Iso (Calcium (08/18/25 05:40) Electrocardiogram (08/18/25 05:41) Heparin 10,000 Unit/Ml 1ml (Heparin 10,0 (08/18/25 05:55) Heparin 25,000 Unit/250ml Bag (Heparin 2 (08/18/25 05:55) Amiodarone 150mg/Dext, Iso-Os (Nexterone (08/18/25 06:00) Cbc/Diff (08/18/25 06:25) ESR (08/18/25 06:25) Hs Troponin I W Calculations (08/18/25 06:25) BMP (08/18/25 06:25) Ethanol (08/18/25 06:25) Liver Panel (08/18/25 06:25) MG (08/18/25 06:25) PBNP (08/18/25 06:25) Pt Inr (08/18/25 06:25) PTT (08/18/25 06:25) Diazepam Inj (Valium Inj) (08/18/25 06:30) Heparin 10,000 Unit/Ml 1ml (Heparin 10,0 (08/18/25 06:35) Message To Nursing (08/18/25 06:40) Cardiac Ptt (08/18/25 12:51) LA (08/18/25 06:54) Hs Troponin I W Calculations (08/18/25 09:00) Electrocardiogram (08/18/25 05:56) Magnesium Sulf-Water 2g/50ml (Magnesium (08/18/25 08:20) Morphine 2mg/Ml Inj. (Morphine Inj.) (08/18/25 08:35) Occult Bld Stool (08/18/25 09:20) Ua W/Microscopic, Cult If Ind (08/18/25 10:46) Vital Signs 08/18/25 08/18/25 08/18/25 08/18/25 05:10 05:26 05:27 05:30 Pulse 167 114 Resp 21 14 Pulse Ox 100 100 100 O2 Delivery Nasal Cannula* Nasal Cannula* Nasal Cannula* O2 Flow Rate 5 3 5 FiO2 40 32 40 08/18/25 08/18/25 08/18/25 08/18/25 05:30 05:48 06:30 06:35 Temp 96.3 97.7 Pulse 111 86 124 Resp 20 20 16 19 B/P (MAP) 127/78 (94) 103/73 (83) 103/70 (81) Pulse Ox 99 100 100 O2 Flow Rate 5.0 5.0 FiO2 40 08/18/25 08/18/25 08/18/25 08/18/25 06:41 06:52 07:14 07:59 Temp 97.7 97.7 97.7 Pulse 88 77 73 66 Resp 17 15 24 14 B/P (MAP) 118/78 (91) 118/78 (91) 104/69 (81) 104/70 (81) Pulse Ox 100 100 100 100 O2 Flow Rate 5.0 2.0 1.5 1.5 08/18/25 08/18/25 08/18/25 08/18/25 08:00 08:10 08:37 08:41 Temp 97.7 97.7 Pulse 67 68 Resp 20 17 16 17 B/P (MAP) 104/69 (81) 103/70 (81) Pulse Ox 100 100 100 O2 Delivery Room Air O2 Flow Rate 1.5 1.5 FiO2 40 08/18/25 08/18/25 08/18/25 09:33 09:56 10:38 Temp 97.7 97.7 97.7 Pulse 61 59 60 Resp 16 15 15 B/P (MAP) 99/64 (76) 101/65 (77) 106/66 (79) Pulse Ox 100 100 100 O2 Flow Rate 1.5 1.5 1.5 Laboratory Tests Test 08/18/25 05:20 08/18/25 06:52 08/18/25 08:49 08/18/25 09:20 White Blood Count 5.4 Red Blood Count 2.41 L Hemoglobin 7.1 L Hematocrit 21.9 *L Mean Corpuscular Volume 91.1 Mean Corpuscular Hemoglobin 29.4 Mean Corpuscular Hemoglobin Concent 32.2 L Red Cell Distribution Width 15.0 H Platelet Count 138 L Mean Platelet Volume 9.0 Neutrophils (%) (Auto) 89.6 H Lymphocytes (%) (Auto) 5.5 L Monocytes (%) (Auto) 4.3 Eosinophils (%) (Auto) 0.3 Basophils (%) (Auto) 0.3 Neutrophils # (Auto) 4.8 Lymphocytes # (Auto) 0.3 L Monocytes # (Auto) 0.2 Eosinophils # (Auto) 0.0 Basophils # (Auto) 0.0 CBC Comment Coagulation Comments Lactic Acid Level 1.9 Troponin I High Sensitivity 930 *H 3984 *H Chemistry Comments Erythrocyte Sedimentation Rate 12 Prothrombin Time 11.5 INR International Normalized Ratio 1.1 Activated Partial Thromboplast Time 50 H Sodium Level 144 Potassium Level 5.0 Chloride Level 115 H Carbon Dioxide Level 15.6 L Anion Gap 13 Blood Urea Nitrogen 60 H Creatinine 4.01 H Estimated GFR/1.73 m2 16 BUN/Creatinine Ratio 15.0 Glucose Level 208 H Calcium Level 8.1 L Magnesium Level 1.3 L Total Bilirubin 0.2 Direct Bilirubin 0.1 Aspartate Amino Transf (AST/SGOT) 33 Alanine Aminotransferase (ALT/SGPT) 31 Alkaline Phosphatase 52 Pro-B-Type Natriuretic Peptide 6262 H Total Protein 5.6 L Albumin 3.2 L Globulin 2.4 L Albumin/Globulin Ratio 1.3 Ethyl Alcohol Level < 10 Troponin I High Sens Percent [place] 328 Troponin I Hi Sens Absolute Change 3054 Stool Occult Blood Negative Test 08/18/25 10:46 Urine Specimen Description Voided Urine Color Straw Urine Clarity Slightly cloudy Urine pH 6.0 Urine Specific [place] 1.020 Urine Protein 100 H Urine Glucose (UA) Negative Urine Ketones Negative Urine Occult Blood Large H Urine Nitrite Negative Urine Bilirubin Negative Urine Urobilinogen 0.2 Urine Leukocyte Esterase Negative Urine RBC 20-50 Urine WBC 0-4 Urine Squamous Epithelial Cells None seen Urine Bacteria Few Urine Hyaline Casts 0-3 Urine Mucus None seen Urine Culture Indicated Not ind Volume Urine Centrifuged 10 ml Urine Comment Re-Evaluation Re-Evaluation : Re-Evaluation: Improved Progress Patient seen and examined. Patient was in cardiac arrest given ACLS medications cardioverted 3 times seemed to be stabilized, ROSC. Patient had CPR for over 10 minutes. The patient is now speaking. He had an episode of vomiting about 700 cc. He is in a normal sinus rhythm chest pain has resolved. Patient is on an amiodarone drip as well as a heparin drip. EKG was repeated and showed significant ischemic changes without any ST elevations. Most likely having a non ST-elevation [place] however the 1st troponin is negative. EKG/XRAY/CT/US/VASC/MRI EKG #1: Intepreting Monitor?: Yes Additional Comment [facility] Test Date: 2025-08-18 Test Time: 05:20:45 Pat Name: SANJUANA BLANDFORD Department: EMERGENCY ROOM Patient ID: [facility]-[id number] Room: Gender: M Chemical Pumper: : 1970 Requested By: JUAN DONNELLY Order Number: [id number] Reading MD: Dr. Juan Donnelly Measurements Intervals [place] Rate: 143 P: 48 MT: 110 QRS: -62 QRSD: 184 T: 95 QT: 379 QTc: 585 Interpretive Statements Sinus tachycardia Nonspecific IVCD with LAD LVH with secondary repolarization abnormality Electronically Signed On 08-18-2025 5:40:[address] Juan Donnelly EKG #2: Additional Comment Test Date: 2025-08-18 Test Time: 05:46:27 Pat Name: SANJUANA BLANDFORD Department: [facility]-ER Patient ID: [facility]-[id number] Room: Gender: M Chemical Pumper: : 1970 Requested By: JUAN DONNELLY Order Number: [id number] Reading MD: Dr. Juan Donnelly Measurements Intervals [place] Rate: 90 P: 66 MT: 157 QRS: -39 QRSD: 127 T: 215 QT: 373 QTc: 457 Interpretive Statements Sinus rhythm Ventricular premature complex Probable left atrial enlargement Nonspecific IVCD with LAD Repol abnrm, severe global ischemia (LM/MVD) Electronically Signed On 08-18-2025 6:44:[address] Juan Donnelly Please click the below link to view image of tracing. Chest X-Ray : Additional Comments Ordering Physician: JUAN DONNELLY MD Exam: CHEST,SINGLE VIEW CHEST RADIOGRAPH Indication: CHEST PAIN Technique: DI CHEST,SINGLE VIEW Comparison: None FINDINGS: The cardiac silhouette is enlarged.. The lungs demonstrate no pulmonary airspace consolidation. The pulmonary vasculature is unremarkable. There is no pleural effusion. There is no pneumothorax. IMPRESSION: No pulmonary airspace consolidation. Cardiomegaly Electronically Signed by:HENRIK BARBOSA MD Date & Time: 08/18/25 0539 Heart Score: Heart Score Response (Comments) Value History Highly Suspicious [address]-Deviation 2 Age 45-64 1 Risk Factors 1 or 2 risk factors 1 Troponin Normal limit 0 Total 6 Medical Decision Making Additional information obtaine: old records Findings Patient with multiple cardiac arrhythmias cardiac arrest electrolytes were reassuring Differential Dx:Considerations: Include Cardiopulmonary arrest, Include Cardiogenic shock, Include Cardiac tamponade, Include Dysrhythmia, Include Electrolyte Disorder, Include Encephalopathy, Include Heart block, Include Myocardial infaction, Include Pneumothorax, Include Pulmonary embolus, Include Respiratory failure, Include Ruptured aortic aneurysm, Include other Departure Disposition: 04 INTERMEDIATE CARE FACILITY Admission Level of Care: Critcal Care Impression: Primary Impression: Cardiac arrest Additional Impressions: Chest pain Qualified Codes: I20.0 - Unstable angina V tach Ventricular fibrillation Atrial fibrillation with rapid ventricular response Status post kidney transplant Lower GI bleed NSTEMI (non-ST elevated myocardial infarction) Condition: Critical Referrals: NO PRIMARY CARE PROVIDER (PCP) Education Educated: Patient Educated regarding: diagnosis, need for follow up, other Critical Care Note Total Time (mins): 150 Critical Care Note The very real possibility of a deterioration of this patient's condition required the highest level of my preparedness for sudden, emergent intervention. I provided critical care services, which included medication orders, frequent reevaluations of the patient's condition and response to treatment, ordering and reviewing test results, and discussing the case with various consultants. Excludes time spent performing separately billable procedures. The critical care time associated with the care of the patient was. 150 minutes Additional Comment Additional Comment After signed out the patient ultimately was unable to be transferred to a transplant center. Patient's troponins are increasing 10 fold. No STEMI was ever identified. Patient so far has been medically managed on a heparin drip. Patient was admitted to the ICU as well as Cardiology and Nephrology consultation with help of the morning ER physician. Signature Scribe Signature: No Attestation: The note accurately reflects work and decisions made by me.Juan Donnelly MD 08/18/25 07:07 JUAN DONNELLY MD Aug 18, 2025 05:52
[2025-08-18] MEDS: magnesium sulf-water 2g/50mL 50 ML IV ONE ×2 (05:54→08:27)
[2025-08-18] MEDS: amiodarone/D5 360MG/200ML BAG 200 ML IV ONE ×2 (05:54→10:44)
[2025-08-18] MEDS: CALCIUM GLUC 1gm/50ml NACL,iso 50 ML IV ONE (06:02)
[2025-08-18] MEDS: normal saline 1000ml 1,000 ML IV ONE (06:03)
[2025-08-18] MEDS: heparin 10,000 units/1 ML INJ IV ONE (06:07)
[2025-08-18] MEDS: amiodarone 150mg/dext, iso-os 100 ML IV ONE (06:16)
[2025-08-18] MEDS: diazepam inj 5 MG/ML inj. IV ONE (06:35)
[2025-08-18] MEDS ORDERED: heparin 10,000 units/1 ML INJ IV PRN (06:35)
[2025-08-18] MEDS: MESSAGE TO NURSING IV ONE (06:42)
[2025-08-18] MEDS: heparin 25,000 UNIT/250ml bag 250 ML IV PRN (06:51)
[2025-08-18 07:08] LABS: MEAN PLATELET VOLUME 9.0 FL (7.4-10.4); RED CELL DISTRIBUTION WIDTH 15.0 % (11.5-14.5)
[2025-08-18 07:18] LABS: APTT 50 SECONDS (22-32); INR 1.1 INR
[2025-08-18 07:27] LABS: CREATININE 4.01 MG/DL (0.60-1.10); TOTAL CARBON DIOXIDE 15.6 MMOL/L (24-32); eCRCL 25 ML/MIN; eGFR 16 ML/MIN
[2025-08-18 07:30] LABS: ETHANOL < 10 MG/DL (<10); PRO BRAIN NATRIURETIC PEPTIDE 6262 PG/ML (0-125)
--- NOTE | 2025-08-18 07:31 | ELECTROCARDIOGRAPH REPORT ---
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 Laxmi Black Measurements Intervals [place] Rate: 86 P: 56 HI: 152 QRS: -46 QRSD: 129 T: 224 QT: 379 QTc: 454 Interpretive Statements Sinus rhythm Ventricular premature complex Probable left atrial enlargement Nonspecific IVCD with LAD Consider anterior infarct Nonspecific T abnormalities, inferior leads Electronically Signed On 08-18-2025 19:06:[address] Laxmi Black Please click the below link to view image of tracing.
[2025-08-18 09:36] LABS: OCCULT BLOOD STOOL NEGATIVE (Neg)
[2025-08-18] MEDS ORDERED: morphine 4 MG/ML inj SYRINge IV PRN (10:50)
[2025-08-18] MEDS ORDERED: ondansetron/PF 4mg/2ml inj IV PRN (10:50)
[2025-08-18] MEDS ORDERED: magnesium hydroxide 30ml (MOM) UD suspension PO PRN (10:50)
[2025-08-18 10:54] LABS: LEUKOCYTE ESTERASE ,URINE NEGATIVE (Neg); NITRITES, URINE NEGATIVE (Neg); OCCULT BLOOD,URINE LARGE (Neg); UA COLLECTION TYPE VOIDED
[2025-08-18 11:01] LABS: HYALINE CASTS 0-3 /LPF (NEGATIVE); MUCUS STRANDS NONE SEEN /LPF (Neg); SQUAMOUS EPITHELIAL CELL,UR NONE SEEN /LPF (FEW)
--- NOTE | 2025-08-18 11:04 | HISTORY AND PHYSICAL ---
History of Present Illness End CC ~ Admission Diagnosis:.: NSTEMI History of Present Illness H/O Kidney Transplant who presented to ER with CP. Pt with CAD and PCI in the past. Shortly after arrival to ER pt had V-fib arrest requiring brief CPR + Defibrillation. Amiodarone drip started Allergies: Coded Allergies: hydralazine (Unverified Allergy, Unknown, 08/18/25) Home Medications Home Medications Active Aspirin 81 Mg Tab.chew 1 Tab PO DAILY 14 Days Take one tablet every alternate day for two weeks followed by one tablet daily every day. Uloric (Febuxostat) 40 Mg Tablet 1 Tablet PO DAILY Reported Prograf (Tacrolimus) 1 Mg Capsule 4 Mg PO BID Vitamin D2 (Ergocalciferol (Vitamin D2)) 1,250 Mcg (04083 Unit) Capsule 1 Cap PO Q7D SUNDAYS Lopressor tablet (Metoprolol Tartrate) 25 Mg Tablet 0.5 Tab PO Q12H 30 Days Hold for SBP below 100mm Hg Hold for Heart Rate below 60. Magnesium (Magnesium Oxide) 400 Mg Capsule 400 Mg PO BID Mycophenolate Mofetil 500 Mg Tablet 750 Mg PO BID Lipitor* (Atorvastatin Calcium) 20 Mg Tablet 10 Mg PO MWF Sensipar* (Cinacalcet) 30 Mg Tablet 90 Mg PO HS Prednisone* (Prednisone) 5 Mg Tablet 5 Mg PO DAILY Past Medical History Past Medical History: Coronary Artery Disease, High Cholesterol, Hypertension, Kidney Transplant, Renal Disease, Gout Past Surgical History Past Surgical History: other Other Past Surgical History: kidney transplant, cardiac stents Past Family History Patient History: Patient reports no known family medical history. 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 - 30 Minutes Review of Systems All Other Systems at this time: Reviewed and Negative Cardiovascular: Reports: chest pain Physical Exam Last Vital Signs recorded: Temperature: 97.7, Source: Temporal, Heart Rate: 60, Respiratory Rate: 16, BP: 100/66, Pulse Oximetry: 100, Weight: 95.500 General Appearance: no apparent distress EENT: PERRL/EOMI Neck: supple Respiratory: lungs clear Cardiovascular: regular rate, rhythm Peripheral Pulses: 1+ carotid (R), 1+ carotid (L), 1+ radial (R), 1+ radial (L), 1+ femoral (R), 1+ femoral (L), 1+ dorsalis pedis (R), 1+ dorsalis pedis (L), 1+ posterior tib (R), 1+ posterior tib (L), 1+ other Gastrointestinal: bowels sounds present Extremities: no edema Neurologic: oriented x4 Skin: normal color Results Diagram Lab Result Diagram: 08/18/25 0652 08/18/25 0652 Assessment/Plan Problems/Diagnosis: (1) NSTEMI (non-ST elevated myocardial infarction) (2) Ventricular fibrillation Additional Plan 1-V-Fib -Continue Amiodarone drip 2-NSTEMI -Heparin drip -Echo -Cardiology consulted 3-H/O CAD -Resume home meds 4-H/O Renal Transplant -Resume home meds Elisabeth Caldwell CC time 35min NEERU CALDWELL MD Aug 18, 2025 11:04
[2025-08-18] MEDS: sodium bicarbonate 1meq/ml inj 150 ML in dextrose 5%-water 1,000 ML IV SCH (11:11)
--- NOTE | 2025-08-18 12:32 | ELECTROCARDIOGRAPH REPORT ---
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 Juan Donnelly Measurements Intervals [place] Rate: 66 P: 80 NM: 57 QRS: -36 QRSD: 119 T: 243 QT: 427 QTc: 448 Interpretive Statements Pediatric ECG interpretation Sinus bradycardia Short NM interval LAE, consider biatrial enlargement Nonspecific intraventricular conduction delay ST Elevation in V2 Electronically Signed On 08-18-2025 19:06:[address] Juan Donnelly Please click the below link to view image of tracing.
--- NOTE | 2025-08-18 13:07 | CONSULTATION REPORT ---
Cardiac Consultation Report Providers to CC ~ Subjective Subjective Cardiology consultation: Cardiopulmonary resuscitation lower GI bleeding known atherosclerotic heart disease status post renal transplant x2 non ST elevated NM. Severe anemia. Was initially called by Dr. Donnelly from the emergency room about this patient as the bobbin sorter recommended to transfer the patient not to admit to our facility. I was told that he had had a cardiac transplant however it turns out that he has a renal transplant. None of the transplant centers were taken he was subsequently hospitalized here. Reading Dr. Donnelly's notes patient arrived received CPR with chest compression and medications f he or sustained V-tach possibly VFib rapid atrial fibrillation. He Is presently lying at 30 in bed asymptomatic on intravenous amiodarone and intravenous heparin. Prior to this event he had seen his usual art preparator had an echocardiogram that was not remarkable by his history he has been having exertional chest pain. He has been pending to have a colonoscopy due to his GI bleeding which is bright red blood per rectum after each bowel movement. That has not been accomplished yet. Jacquard Loom Carpet Weaver has already seen him however decision was not made with respect to transfusion and he wants to leave that up to the bobbin sorter. He has heart catheterization was on 02/20/[address] elevated NM no left ventriculogram. Separate ostia of left circumflex and left anterior descending. First diagonal totally occluded with collateral. Apical left anterior descending supplies collateral to the posterior descending artery. 40% in stent stenosis of the mid left circumflex I coronary 100% occluded in multiple sites with right to right and [id number] collateralization chronically. Patient medications included Uloric cephalexin tacrolimus vitamin-D metoprolol tartrate aspirin magnesium mycophenolate mofetil clopidogrel Lipitor Sensipar prednisone. Patient tells me that his clopidogrel has been stopped due to lower GI bleeding. 02/16/2025 his hemoglobin was 7.7 show hemoglobin was 6.4 he received 1 unit of blood. Patient medications include aspirin atorvastatin Sensipar urologic magnesium metoprolol tartrate mycophenolate mofetil prednisone Prograf Objective Vitals Vital Signs Date Time Temp Pulse Resp B/P (MAP) Pulse Ox O2 Delivery O2 Flow Rate FiO2 08/18/25 10:54 97.7 60 16 100/66 (77) 100 1.5 08/18/25 08:37 40 08/18/25 05:30 Nasal Cannula* Lab Results: 08/18/25 0652 08/18/25 0652 Objective Carotid no bruit patient without any chest pain at this time. Intravenous heparin and amiodarone infusing. No carotid bruit heart no murmur no S3 gallop no rub pulse plus one in feet plus two femorals radial pulses intact normal sinus rhythm. Coagulation Studies Laboratory Tests Test 08/18/25 06:52 Prothrombin Time 11.5 SECONDS (9.0-12.0) INR International Normalized Ratio 1.1 INR Activated Partial Thromboplast Time 50 SECONDS (22-32) H Coagulation Comments Other Results Hemoglobin 7.1 platelet count [id number]. Creatinine 4.0 potassium 5.0. Problem\Assessment\Plan Additional Plan Impression: Crescendo angina culminating in non ST elevated myocardial infarction in a patient with lower GI bleeding hemoglobin of 7.1. Status post renal transplant x2 on chronic immunosuppressive therapy creatinine is 4.0. Recommendation 1. Patient does not meet criteria for intravenous heparin antiplatelets considering he has lower GI bleeding recurrent. It was also present in 01/2025 and he never has had a endoscopy. 2. He is not a candidate for surgical revascularization more than likely would not be accepted at this facility due to chronic immunosuppressive therapy. 3. More than likely has had progression of coronary arterial disease since 2016 either has developed a narrowing in the left anterior descending or has a failed left circumflex stent. 4. Recommend transfuse to 10 units. Apparently he requires irradiated red packed cells which are not available in [place]. Has to be ordered from [place]. 5. He is medically stabilized and survive he will discuss with his if he wants to have a heart catheterization or not. 6. Prognosis is poor. As if he can have at 3rd time renal transplant and I told him I do not know more than likely not especially in his present situation. JOANN DEJESUS MD Aug 18, 2025 13:07
[2025-08-18] MEDS ORDERED: LISI10TA27 PO (13:20)
[2025-08-18] MEDS ORDERED: CALC0.5C8 PO (13:20)
[2025-08-18] MEDS ORDERED: FEBU40TA PO (13:21)
[2025-08-18] MEDS ORDERED: ASPI81TA52 PO (13:21)
--- NOTE | 2025-08-18 15:22 | CONSULTATION REPORT ---
Consult Providers to CC ~ History of Present Illness Reason for Admit\Complaint: Chest Pain History of Present Illness This is a 54-year-old male with a history of coronary artery disease (s/p PCI), two prior renal transplants (2001, 2012), and chronic immunosuppression (tacrolimus, mycophenolate, prednisone), who presented with NSTEMI and subsequently developed ventricular fibrillation arrest requiring CPR, defibrillation, and multiple cardioversions. He is currently on an amiodarone infusion and has developed acute kidney injury (ALBER) on a background of a transplanted kidney. His labs reveal significant azotemia (BUN 60, creatinine 4.01), metabolic acidosis (CO2 15.6), hyperkalemia (K 5.0), and anemia (Hgb 7.1). He is also hyperglycemic (glucose 208). The etiology of his ALBER is likely multifactorial, including ischemic insult from cardiac arrest, possible nephrotoxic medication exposure (amiodarone, tacrolimus), and hemodynamic instability. He is at high risk for further renal compromise and allograft dysfunction. His immunosuppressive regimen requires careful adjustment in the setting of ALBER and critical illness to balance the risk of rejection with infection and drug toxicity. Allergies: Coded Allergies: hydralazine (Unverified Allergy, Unknown, 08/18/25) Home Medications Home Medications Active Reported Uloric (Febuxostat) 40 Mg Tablet 1 Tab PO DAILY 30 Days Aspirin EC (Aspirin) 81 Mg Tablet.dr 1 Tab PO DAILY 30 Days Lisinopril 10 Mg Tablet 1 Tab PO HS Calcitriol 0.5 Mcg Capsule 1 Cap PO DAILY Prograf (Tacrolimus) 1 Mg Capsule 4 Mg PO BID Vitamin D2 (Ergocalciferol (Vitamin D2)) 1,250 Mcg (69110 Unit) Capsule 1 Cap PO Q7D SUNDAYS Lopressor tablet (Metoprolol Tartrate) 25 Mg Tablet 50 Tab PO QAM 30 Days Hold for SBP below 100mm Hg Hold for Heart Rate below 60. Magnesium (Magnesium Oxide) 400 Mg Capsule 400 Mg PO BID Mycophenolate Mofetil 500 Mg Tablet 750 Mg PO BID Lipitor* (Atorvastatin Calcium) 20 Mg Tablet 10 Mg PO MWF Sensipar* (Cinacalcet) 30 Mg Tablet 30 Mg PO HS Prednisone* (Prednisone) 5 Mg Tablet 5 Mg PO DAILY Past Medical History Past Medical History Reviewed Past Surgical History Surgical History Comment Reviewed Family History Family History: Patient reports no known family medical history. ROS ROS all other systems negative by patient report Exam Vitals: Vital Signs Date Time Temp Pulse Resp B/P (MAP) Pulse Ox O2 Delivery O2 Flow Rate FiO2 08/18/25 14:59 97.7 60 19 99/62 08/18/25 14:00 99 Room Air 08/18/25 10:54 1.5 08/18/25 08:37 40 Alert RRR w/o murmur, no JVD CTAB, no wheezes +BS, NT 2+ edema Diagnostic Data Last Recorded Lab Results: 08/18/25 0652 08/18/25 0652 Diagnostic Data: Laboratory Tests Test 08/18/25 06:52 08/18/25 13:31 Prothrombin Time 11.5 SECONDS (9.0-12.0) INR International Normalized Ratio 1.1 INR Activated Partial Thromboplast Time 50 SECONDS (22-32) H APTT (Heparin Protocol) 38 SECONDS (45-60) L Coagulation Comments Additional Plan This patient with a history of renal transplantation and CAD has developed ALBER following cardiac arrest and NSTEMI, with significant metabolic derangements and anemia. Management priorities include supportive care for ALBER, careful adjustment of immunosuppression, correction of electrolyte and acid-base disturbances, and close monitoring for infection, rejection, and further cardiac events. Multidisciplinary collaboration with transplant nephrology and cardiology is essential. 1. Acute Kidney Injury (ALBER) in Kidney Transplant Patient His ALBER is probably due to low blood flow during his cardiac arrest, possible medication side effects, and his history of kidney transplant. Check kidney function (BUN, creatinine, urine output, urine spot studies) every day. Watch fluid balance closely (input/output, daily weights). Avoid nephrotoxic agents. Check tacrolimus levels and adjust the dose as needed. Consider lowering or stopping mycophenolate if he has low blood counts or infection. Treat metabolic acidosis if it gets worse. Treat high potassium if it rises further. Get a kidney ultrasound if there is concern for obstruction. 2. Immunosuppression Management He is on three drugs to prevent kidney rejection. With ALBER, the risk of drug side effects and infection is higher. Check tacrolimus blood level and keep it at the lower end of the safe range, 3- 8. Lower or stop mycophenolate if he has infection or low blood counts. Continue prednisone at his usual dose; increase if he is unstable. Watch for signs of infection and low blood counts. Work with the transplant team to adjust medications. Watch for signs of kidney rejection (rising creatinine, low UOP). 3. Electrolyte and Acid-Base Problems He has high potassium, low CO2 (acidosis), and high blood sugar. Check electrolytes and acid-base status often. Treat high potassium if needed (calcium, insulin/glucose). Treat acidosis if it is severe. Control blood sugar with insulin if needed. Avoid medicines that make potassium or acidosis worse. 4. Anemia and Low Platelets He has a low red blood cell count and slightly low platelets, likely from chronic disease, possible blood loss, or medication side effects. Check blood counts daily. Give blood transfusion if he is symptomatic or hemoglobin is below 7. Look for any bleeding. Review medications for side effects. Lower or stop mycophenolate if blood counts drop further. 5. Heart Problems and Arrhythmia He had an NSTEMI and cardiac arrest, now in sinus tachycardia after treatment. Keep him on heart monitoring. Watch for side effects from amiodarone, especially with kidney problems. Adjust beta-hilario dose as needed. Work with cardiology for ongoing care. JACOBY ANGELES III DO Aug 18, 2025 15:22
[2025-08-18] MEDS: tacrolimus anhydrous 1mg capsule PO SCH (20:17)
[2025-08-18 20:41] LABS: MEAN PLATELET VOLUME 8.8 FL (7.4-10.4); RED CELL DISTRIBUTION WIDTH 14.8 % (11.5-14.5)
[2025-08-18 20:49] LABS: CREATININE 4.36 MG/DL (0.60-1.10); TOTAL CARBON DIOXIDE 18.5 MMOL/L (24-32); eCRCL 23 ML/MIN; eGFR 14 ML/MIN
[2025-08-18] MEDS: amiodarone/D5 360MG/200ML BAG 200 ML IV SCH (21:38)
[2025-08-19] VITALS (25 sets, daily range): BP systolic 110–152; BP diastolic 70–93; PULSE 62–80; RESP 11–26; O2SAT 98–100
[2025-08-19 00:21] LABS: LEUKOCYTE ESTERASE ,URINE NEGATIVE (Neg); NITRITES, URINE NEGATIVE (Neg); OCCULT BLOOD,URINE TRACE-INTACT (Neg)
[2025-08-19 00:25] LABS: UA COLLECTION TYPE FOLEY CATH
[2025-08-19 00:27] LABS: CREATININE,URINE RANDOM 97.0 MG/DL; SQUAMOUS EPITHELIAL CELL,UR FEW /LPF (FEW)
[2025-08-19 00:29] LABS: OSMOLALITY UA 335.0 MOSM/K (50-1400)
[2025-08-19 01:31] LABS: UA EOSINOPHILS NO EOS /HPF
[2025-08-19 03:09] LABS: MEAN PLATELET VOLUME 8.9 FL (7.4-10.4); RED CELL DISTRIBUTION WIDTH 14.9 % (11.5-14.5)
[2025-08-19 03:20] LABS: CREATININE 4.35 MG/DL (0.60-1.10); PHOSPHORUS 5.5 MG/DL (2.3-4.5); TOTAL CARBON DIOXIDE 19.1 MMOL/L (24-32); eCRCL 23 ML/MIN; eGFR 14 ML/MIN
--- NOTE | 2025-08-19 06:31 | PROGRESS NOTE ---
Progress Note Dictate Providers to CC ~ Progress Note: No new acute issues overnight Central Line/PICC still needed: Yes [facility] Indications Met/Not Met: F/C Indications Not Met Antibiotic Ordered?: No Subjective Subjective Comfortable Objective Vitals Vital Signs Date Time Temp Pulse Resp B/P (MAP) Pulse Ox O2 Delivery O2 Flow Rate FiO2 08/19/25 05:53 97.9 62 12 110/73 (85) 99 Room Air 08/18/25 10:54 1.5 08/18/25 08:37 40 Lab Results: 08/19/25 0301 08/19/25 0301 Objective Heart: S1-2 reg Lungs: Clear Abdomen: Soft, BS (+) Ext: No edema Neuro: Awake Coagulation Studies Laboratory Tests Test 08/18/25 06:52 08/18/25 13:31 Prothrombin Time 11.5 SECONDS (9.0-12.0) INR International Normalized Ratio 1.1 INR Activated Partial Thromboplast Time 50 SECONDS (22-32) H APTT (Heparin Protocol) 38 SECONDS (45-60) L Coagulation Comments Problem\Assessment\Plan Problems/Diagnosis: (1) NSTEMI (non-ST elevated myocardial infarction) (2) Ventricular fibrillation Additional Plan 1-V-Fib -Change Amiodarone to PO 2-NSTEMI -D/C Heparin drip -Await Echo results -Cardiology consulted: Conservative Tx recommended 3-H/O CAD -Resume home meds 4-H/O Renal Transplant -Resume home meds -Check Tacrolimus levels -Nephrology consulted Elisabeth Caldwell CC time 35min Sepsis Screening Reassessment Date: Aug 19, 2025 NEERU CALDWELL MD Aug 19, 2025 06:31
[2025-08-19] MEDS ORDERED: febuxostat 40mg tablet PO SCH (08:00)
[2025-08-19] MEDS: pantoprazole 40mg Tablet.DR PO SCH (08:00)
[2025-08-19] MEDS: cinacalcet 30mg tablet PO SCH (08:01)
[2025-08-19] MEDS: magnesium Cl slow-release 64mg tablet PO PRN (08:02)
[2025-08-19] MEDS: aspirin 81mg, enteric-coated 1 TAB TABLET.DR PO SCH (08:02)
--- NOTE | 2025-08-19 15:16 | PROGRESS NOTE ---
Progress Note Cardiology Providers to CC ~ Subjective Subjective Cardiology progress note: Diagnoses 1. Sudden cardiac resuscitated non ST elevated GA. 2. Status post renal transplant x2 creatinine 4.5 patient is seen by city attorney consult red. He has no transplant team. 3. Patient choices to go home and take his chances on amiodarone or have a diagnostic coronary angiography. With undoubtedly postprocedure dialysis requirement 4. Prior remote heart catheterization 100% right coronary with right to right and [id number] collaterals 100% diagonal with collaterals 70% left circumflex stent left anterior descending with mild atherosclerotic heart disease 5. Post defecation bleeding from probable internal hemorrhoids however patient has not had endoscopy and no one wants to perform it; and or he is considered high-risk. Patient feels symptomatically much better since transfusion. He is on the bedside commode defecating. Normal sinus rhythm. Blood pressure 110/70. Troponins are up to 25. He is on intravenous heparin. He had a talk with his and they would like to proceed to diagnostic coronary angiography and a willing to take the risks. Scheduled for approximately 10-11 a.m. depending on what else is occurring in the laborer operator at that time. Objective Result Diagram: 08/19/25 0301 08/19/25 0301 Objective Carotid no bruit chest clear to auscultation percussion heart no murmur no S3 gallop no rub abdomen no bruits nontender bowel sounds are present pulses plus two in upper extremities plus one in feet femoral bruits present ocular motion intact no nystagmus no tremor. Coagulation Studies Laboratory Tests Test 08/18/25 06:52 08/18/25 13:31 Prothrombin Time 11.5 SECONDS (9.0-12.0) INR International Normalized Ratio 1.1 INR Activated Partial Thromboplast Time 50 SECONDS (22-32) H APTT (Heparin Protocol) 38 SECONDS (45-60) L Coagulation Comments Problem\Assessment\Plan Additional Plan Assessment: Echocardiography with normal wall motion therefore he had a non ST elevated GA. Circumflex occlusion is what is most likely. He and his have decided for diagnostic coronary angiography intervention as may be needed. Plan: NPO except meds in a.m. catheterization in laborer operator availability approximately 10-11 a.m.. Include and not restricted to stroke myocardial infarction renal failure neurologic vascular complications bleeding complications allergic reaction intervention and its attendant complications emergency coronary bypass grafting in spite of his no suppression if needed. JOANN DEJESUS MD Aug 19, 2025 15:16
--- NOTE | 2025-08-19 18:15 | PROGRESS NOTE ---
Progress Note Dictate Providers to CC ~ Progress Note: This is a 54-year-old male with a history of coronary artery disease (s/p PCI), two prior renal transplants (2001, 2012), and chronic immunosuppression (tacrolimus, mycophenolate, prednisone), who presented with NSTEMI and subsequently developed ventricular fibrillation arrest requiring CPR, defibrillation, and multiple cardioversions. He is currently on an amiodarone infusion and has developed acute kidney injury (ALBER) on a background of a transplanted kidney. His labs reveal significant azotemia (BUN 60, creatinine 4.01), metabolic acidosis (CO2 15.6), hyperkalemia (K 5.0), and anemia (Hgb 7.1). He is also hyperglycemic (glucose 208). The etiology of his ALBER is likely multifactorial, including ischemic insult from cardiac arrest, possible nephrotoxic medication exposure (amiodarone, tacrolimus), and hemodynamic instability. He is at high risk for further renal compromise and allograft dysfunction. His immunosuppressive regimen requires careful adjustment in the setting of ALBER and critical illness to balance the risk of rejection with infection and drug toxicity. Antibiotic Ordered?: N/A Subjective Subjective Doing well today, no improvement in renal function overnight, I would expect some worsening function the a slow staedy improvement Objective Vitals Vital Signs Date Time Temp Pulse Resp B/P (MAP) Pulse Ox O2 Delivery O2 Flow Rate FiO2 08/19/25 17:00 68 21 115/73 (87) 99 Room Air 08/19/25 15:00 97.5 08/18/25 10:54 1.5 08/18/25 08:37 40 Alert RRR w/o murmur CTAB +BS, NT No edema Lab Results: 08/19/25 0301 08/19/25 0301 Coagulation Studies Laboratory Tests Test 08/18/25 06:52 08/18/25 13:31 Prothrombin Time 11.5 SECONDS (9.0-12.0) INR International Normalized Ratio 1.1 INR Activated Partial Thromboplast Time 50 SECONDS (22-32) H APTT (Heparin Protocol) 38 SECONDS (45-60) L Coagulation Comments Other Results I & O 08/19/25 07:00 Intake Total 2270.8 ml Output Total 750 ml Balance 1520.8 ml Intake Oral 700 ml IV Total 1170.8 ml Blood Product 300 ml Other 100 ml Output Urine Total 750 ml Problem\Assessment\Plan Additional Plan This patient with a history of renal transplantation and CAD has developed ALBER following cardiac arrest and NSTEMI, with significant metabolic derangements and anemia. Management priorities include supportive care for ALBER, careful adjustment of immunosuppression, correction of electrolyte and acid-base disturbances, and close monitoring for infection, rejection, and further cardiac events. Multidisciplinary collaboration with transplant nephrology and cardiology is essential. 1. Acute Kidney Injury (ALBER) in Kidney Transplant Patient His ALBER is probably due to low blood flow during his cardiac arrest, possible medication side effects, and his history of kidney transplant. Check kidney function (BUN, creatinine, urine output, urine spot studies) every day. Watch fluid balance closely (input/output, daily weights). Avoid nephrotoxic agents. Check tacrolimus levels and adjust the dose as needed. Consider lowering or stopping mycophenolate if he has low blood counts or infection. Treat metabolic acidosis if it gets worse. Treat high potassium if it rises further. Get a kidney ultrasound if there is concern for obstruction. 2. Immunosuppression Management He is on three drugs to prevent kidney rejection. With ALBER, the risk of drug side effects and infection is higher. Check tacrolimus blood level and keep it at the lower end of the safe range, 3- 8. Lower or stop mycophenolate if he has infection or low blood counts. Continue prednisone at his usual dose; increase if he is unstable. Watch for signs of infection and low blood counts. Work with the transplant team to adjust medications. Watch for signs of kidney rejection (rising creatinine, low UOP). 3. Electrolyte and Acid-Base Problems He has high potassium, low CO2 (acidosis), and high blood sugar. Check electrolytes and acid-base status often. Treat high potassium if needed (calcium, insulin/glucose). Treat acidosis if it is severe. Control blood sugar with insulin if needed. Avoid medicines that make potassium or acidosis worse. 4. Anemia and Low Platelets He has a low red blood cell count and slightly low platelets, likely from chronic disease, possible blood loss, or medication side effects. Check blood counts daily. Give blood transfusion if he is symptomatic or hemoglobin is below 7. Look for any bleeding. Review medications for side effects. Lower or stop mycophenolate if blood counts drop further. 5. Heart Problems and Arrhythmia He had an NSTEMI and cardiac arrest, now in sinus tachycardia after treatment. Keep him on heart monitoring. Watch for side effects from amiodarone, especially with kidney problems. Adjust beta-hilario dose as needed. Work with cardiology for ongoing care. JACOBY ANGELES III DO Aug 19, 2025 18:15
[2025-08-20] VITALS (23 sets, daily range): BP systolic 115–154; BP diastolic 64–90; PULSE 60–86; RESP 13–22; O2SAT 94–100
--- NOTE | 2025-08-20 06:57 | PROGRESS NOTE ---
Progress Note Dictate Providers to CC ~ Progress Note: No new acute issues overnight Central Line/PICC still needed: N\A [facility] Indications Met/Not Met: F/C Indications Met Antibiotic Ordered?: No Subjective Subjective Comfortable. Objective Vitals Vital Signs Date Time Temp Pulse Resp B/P (MAP) Pulse Ox O2 Delivery O2 Flow Rate FiO2 08/20/25 06:00 63 18 130/79 (96) 97 Room Air 08/20/25 04:00 97.5 08/18/25 10:54 1.5 08/18/25 08:37 40 Lab Results: 08/19/25 0301 08/19/25 0301 Objective Heart: S1-2 reg Lungs: Clear Abdomen: Soft, BS (+) Ext: No edema Neuro: Awake Coagulation Studies Laboratory Tests Test 08/18/25 06:52 08/18/25 13:31 Prothrombin Time 11.5 SECONDS (9.0-12.0) INR International Normalized Ratio 1.1 INR Activated Partial Thromboplast Time 50 SECONDS (22-32) H APTT (Heparin Protocol) 38 SECONDS (45-60) L Coagulation Comments Problem\Assessment\Plan Problems/Diagnosis: (1) NSTEMI (non-ST elevated myocardial infarction) (2) Ventricular fibrillation Additional Plan 1-V-Fib -Continue Amiodarone 2-NSTEMI -Schedule for Cardiac Cath 3-H/O CAD -Resume home meds 4-H/O Renal Transplant -Check Tacrolimus levels? -Nephrology on case 5-CKD -Hopefully can avoid BAKERY ASSISTANT Elisabeth Caldwell CC tme 35min NEERU CALDWELL MD Aug 20, 2025 06:57
[2025-08-20 07:07] LABS: MEAN PLATELET VOLUME 9.2 FL (7.4-10.4); RED CELL DISTRIBUTION WIDTH 14.3 % (11.5-14.5)
[2025-08-20 07:14] LABS: CREATININE 4.75 MG/DL (0.60-1.10); PHOSPHORUS 4.4 MG/DL (2.3-4.5); TOTAL CARBON DIOXIDE 20.6 MMOL/L (24-32); eCRCL 21 ML/MIN; eGFR 13 ML/MIN
[2025-08-20] MEDS: febuxostat 40mg tablet PO SCH (08:00)
[2025-08-20] MEDS ORDERED: febuxostat 40mg tablet PO SCH (09:36)
[2025-08-20] MEDS: EPOETIN ALFA-EPBX 20,000 UNIT/ML 1 ML MDV IV ONE (11:15)
[2025-08-20] MEDS: mannitol 12.5gm/50mL VIAL IV ONE (11:15)
[2025-08-20] MEDS ORDERED: normal saline 1000ml 100 ML IV PRN (11:15)
[2025-08-20] MEDS: heparin 1,000 units/ml 10ml inj HE ONE ×2 (11:20)
[2025-08-20] MEDS: normal saline 1000ml 1,000 ML IV SCH (11:58)
--- NOTE | 2025-08-20 11:59 | PROGRESS NOTE ---
Progress Note Cardiology Providers to CC ~ Subjective Subjective Cardiology progress note: Creatinine rising to 4.7. Input-output reviewed. Negative fluid balance. He is on sodium bicarb since admission. Objective Result Diagram: 08/20/25 0615 08/20/25614 Objective Clear. No systolic murmur no pericardial rub. Chronic edema in the periphery. Coagulation Studies Laboratory Tests Test 08/18/25 06:52 08/18/25 13:31 Prothrombin Time 11.5 SECONDS (9.0-12.0) INR International Normalized Ratio 1.1 INR Activated Partial Thromboplast Time 50 SECONDS (22-32) H APTT (Heparin Protocol) 38 SECONDS (45-60) L Coagulation Comments Problem\Assessment\Plan Additional Plan Assessment: is present. Discussed findings plans for diagnostic coronary angiography. dialysis to follow. Describe patient's situation to cardiovascular surgeon. Patient is on three immunosuppressants he think any bypass surgery should be performed at a transplant center postoperative care. Plan: Hydration overnight recheck creatinine in a.m.. Creatinine continues to rise then we will discuss with environmental sampling technician respect to any further meds for coronary angiography at this time. Patient is asymptomatic has not had any arrhythmias he is on amiodarone. Platelets [id number] hemoglobin 8.6 he is on aspirin. Prognosis guarded to poor. JOANN DEJESUS MD Aug 20, 2025 11:59
--- NOTE | 2025-08-20 16:48 | PROGRESS NOTE ---
Progress Note Dictate Providers to CC ~ Progress Note: This is a 54-year-old male with a history of coronary artery disease (s/p PCI), two prior renal transplants (2001, 2012), and chronic immunosuppression (tacrolimus, mycophenolate, prednisone), who presented with NSTEMI and subsequently developed ventricular fibrillation arrest requiring CPR, defibrillation, and multiple cardioversions. He is currently on an amiodarone infusion and has developed acute kidney injury (ALBER) on a background of a transplanted kidney. His labs reveal significant azotemia (BUN 60, creatinine 4.01), metabolic acidosis (CO2 15.6), hyperkalemia (K 5.0), and anemia (Hgb 7.1). He is also hyperglycemic (glucose 208). The etiology of his ALBER is likely multifactorial, including ischemic insult from cardiac arrest, possible nephrotoxic medication exposure (amiodarone, tacrolimus), and hemodynamic instability. He is at high risk for further renal compromise and allograft dysfunction. His immunosuppressive regimen requires careful adjustment in the setting of ALBER and critical illness to balance the risk of rejection with infection and drug toxicity. Antibiotic Ordered?: N/A Subjective Subjective Doing well today looks and fells better than what one would expect for the severity of his condition Objective Vitals Vital Signs Date Time Temp Pulse Resp B/P (MAP) Pulse Ox O2 Delivery O2 Flow Rate FiO2 08/20/25 16:00 72 19 115/69 (84) 99 Room Air 08/20/25 13:00 98.4 08/18/25 10:54 1.5 08/18/25 08:37 40 Alert RRR w/o murmur CTAB +BS, NT 1+ edema Lab Results: 08/20/25 0615 08/20/25 0615 Coagulation Studies Laboratory Tests Test 08/18/25 06:52 08/18/25 13:31 Prothrombin Time 11.5 SECONDS (9.0-12.0) INR International Normalized Ratio 1.1 INR Activated Partial Thromboplast Time 50 SECONDS (22-32) H APTT (Heparin Protocol) 38 SECONDS (45-60) L Coagulation Comments Other Results I & O 08/20/25 07:00 Intake Total 1842.1 ml Output Total 2950 ml Balance -1107.9 ml Intake Oral 600 ml IV Total 1242.1 ml Output Urine Total 2950 ml Problem\Assessment\Plan Additional Plan This patient with a history of renal transplantation and CAD has developed ALBER following cardiac arrest and NSTEMI, with significant metabolic derangements and anemia. Management priorities include supportive care for ALBER, careful adjustment of immunosuppression, correction of electrolyte and acid-base disturbances, and close monitoring for infection, rejection, and further cardiac events. Multidisciplinary collaboration with transplant nephrology and cardiology is essential. 1. Acute Kidney Injury (ALBER) in Kidney Transplant Patient His ALBER is probably due to low blood flow during his cardiac arrest, possible medication side effects, and his history of kidney transplant. Check kidney function (BUN, creatinine, urine output, urine spot studies) every day. Watch fluid balance closely (input/output, daily weights). Avoid nephrotoxic agents. Check tacrolimus levels and adjust the dose as needed. Consider lowering or stopping mycophenolate if he has low blood counts or infection. Treat metabolic acidosis if it gets worse. Treat high potassium if it rises further. Get a kidney ultrasound if there is concern for obstruction. He will likely need dialysis after angiography, please place a TDC today so we candialyze him starting after angiography tomorrow. 2. Immunosuppression Management He is on three drugs to prevent kidney rejection. With ALBER, the risk of drug side effects and infection is higher. Check tacrolimus blood level and keep it at the lower end of the safe range, 3- 8. Lower or stop mycophenolate if he has infection or low blood counts. Continue prednisone at his usual dose; increase if he is unstable. Watch for signs of infection and low blood counts. Work with the transplant team to adjust medications. Watch for signs of kidney rejection (rising creatinine, low UOP). 3. Electrolyte and Acid-Base Problems He has high potassium, low CO2 (acidosis), and high blood sugar. Check electrolytes and acid-base status often. Treat high potassium if needed (calcium, insulin/glucose). Treat acidosis if it is severe. Control blood sugar with insulin if needed. Avoid medicines that make potassium or acidosis worse. 4. Anemia and Low Platelets He has a low red blood cell count and slightly low platelets, likely from chronic disease, possible blood loss, or medication side effects. Check blood counts daily. Give blood transfusion if he is symptomatic or hemoglobin is below 7. Look for any bleeding. Review medications for side effects. Lower or stop mycophenolate if blood counts drop further. 5. Heart Problems and Arrhythmia He had an NSTEMI and cardiac arrest, now in sinus tachycardia after treatment. Keep him on heart monitoring. Watch for side effects from amiodarone, especially with kidney problems. Adjust beta-hilario dose as needed. Work with cardiology for ongoing care, angiography scheduled for tomorrow, IVF 0.9% NS 100 mL/hr overnight. JACOBY ANGELES III DO Aug 20, 2025 16:48
[2025-08-21] VITALS (26 sets, daily range): BP systolic 121–154; BP diastolic 71–94; PULSE 62–94; RESP 12–24; O2SAT 93–100
[2025-08-21 01:50] LABS: MEAN PLATELET VOLUME 9.4 FL (7.4-10.4); RED CELL DISTRIBUTION WIDTH 14.6 % (11.5-14.5)
[2025-08-21 02:03] LABS: CREATININE 4.45 MG/DL (0.60-1.10); PHOSPHORUS 4.4 MG/DL (2.3-4.5); TOTAL CARBON DIOXIDE 23.4 MMOL/L (24-32); eCRCL 22 ML/MIN; eGFR 14 ML/MIN
[2025-08-21] MEDS: magnesium sulf-water 4G/100mL 100 ML IV PRN (02:44)
[2025-08-21] MEDS: mannitol 12.5gm/50mL VIAL IV ONE ×2 (05:30→09:15)
[2025-08-21] MEDS: EPOETIN ALFA-EPBX 20,000 UNIT/ML 1 ML MDV IV ONE ×2 (05:30→09:15)
[2025-08-21] MEDS: heparin 1,000 units/ml 10ml inj HE ONE ×2 (05:30)
[2025-08-21] MEDS: magnesium sulf-water 2g/50mL 50 ML IV PRN (05:50)
--- NOTE | 2025-08-21 06:49 | CARDIOLOGY REPORT ---
APPROVED REPORT EXAM: Comprehensive 2D, Doppler, and color-flow Echocardiogram. Patient Location: [facility] 2012 Rhythm: SINUS Indications ARRHYTHMIA NSTEMI CPR Cosmetic Surgeon MD Thelma Previous echo: [facility] 02/17/25 EF 60-65%, RVSP 43 mmHg, LAE, mMR, mTR, ASC AO 3.6 2D Dimensions RVDd 3.3 cm IVSd 1.2 (0.7-1.1cm) LVDd 5.1 cm PWd 1.2 (0.7-1.1cm) IVSs 1.4 (0.8-1.2cm) LVDs 3.5 (2.5-4.0cm) PWs 1.3 (0.8-1.2cm) LVOT Diameter 2.03 (1.8-2.4cm) LVEF(%) 60.4 (>50%) IVC 25.20 mm FS (%) 32.4 % SV 76.5 ml CO 4.7 L/min M-Mode Dimensions Left Atrium(MM) 4.47 (2.5-4.0cm) Aortic Root 3.11 (2.2-3.7cm) Aortic Cusp Exc 2.16 (1.5-2.0cm) Aortic Valve AoV Peak Boris. 221.1 cm/s AoV VTI 40.8 cm AO Peak GR. 19.6 mmHg AO Mean GR. 11 mmHg LVOT VTI 22.60 cm LVOT Peak Boris. 118.6 cm/s JENIFER(VTI)/BSA 2.04 cm2/m2 JENIFER (VTI) 2.04 cm2 AV DI 0.55 % Mitral Valve MV E Velocity 136.8 cm/s MV Peak Gr. 11 mmHg MV DECEL TIME 208 ms MV A Velocity 102.3 cm/s MV PHT 68 ms E/A Ratio 1.3 MVA (PHT) 3.24 cm2 MV VMax 162.4 cm/s TDI Lateral E' P. V 15.70 cm/s E/Lateral E' 8.7 Tricuspid Valve TR P. Velocity 263 cm/s RAP ESTIMATE 10 mmHg TR Peak Gr. 28 mmHg RVSP 38 mmHg Pulmonary Vein S1 Velocity 54.4 cm/s D2 Velocity 53.8 cm/s PVa Velocity 25.0 cm/s PVa Duration 140 msec LEFT VENTRICLE Normal LV size and function. Mild concentric hypertrophy. LVEF is 60-65%. RIGHT VENTRICLE RV is mildly dilated with normal function. Elevated right heart pressures with an RVSP of 38 mmHg. ATRIA Left atrium is mildly dilated. AORTIC VALVE Trileaflet AV appears mildly sclerotic without stenosis. Trace insufficiency. MITRAL VALVE Mild MV annular calcification without stenosis. Trace regurgitation. TRICUSPID VALVE TV appears structurally normal with mild regurgitation. PULMONIC VALVE Normal PV without stenosis, physiologic insufficiency. GREAT VESSELS The aortic root is normal in size. IVC is normal in size and collapses greater than 50% with inspiration. PERICARDIUM Trace circumferencial pericardial effusion without hemodynamic compromise. Other Information Study Quality: Adequate Conclusion Normal LV size and function. Mild concentric hypertrophy. LVEF is 60-65%. RV is mildly dilated with normal function. Elevated right heart pressures with an RVSP of 38 mmHg. Left atrium is mildly dilated. Trileaflet AV appears mildly sclerotic without stenosis. Trace insufficiency. Mild MV annular calcification without stenosis. Trace regurgitation. TV appears structurally normal with mild regurgitation. Trace circumferencial pericardial effusion without hemodynamic compromise.
--- NOTE | 2025-08-21 06:55 | PROGRESS NOTE ---
Progress Note Dictate Providers to CC ~ Progress Note: No new acute issues overnight Central Line/PICC still needed: N\A Antibiotic Ordered?: No Subjective Subjective Comfortable Objective Vitals Vital Signs Date Time Temp Pulse Resp B/P (MAP) Pulse Ox O2 Delivery O2 Flow Rate FiO2 08/21/25 06:00 94 19 151/94 (113) 97 Room Air 08/21/25 03:00 97.5 08/18/25 10:54 1.5 08/18/25 08:37 40 Lab Results: 08/21/25 0122 08/21/25 0122 Objective Heart: S1-2 reg Lungs: Clear Abdomen: Soft, BS (+) Ext: No edema Neuro: Awake Coagulation Studies Laboratory Tests Test 08/18/25 06:52 08/18/25 13:31 Prothrombin Time 11.5 SECONDS (9.0-12.0) INR International Normalized Ratio 1.1 INR Activated Partial Thromboplast Time 50 SECONDS (22-32) H APTT (Heparin Protocol) 38 SECONDS (45-60) L Coagulation Comments Problem\Assessment\Plan Problems/Diagnosis: (1) NSTEMI (non-ST elevated myocardial infarction) (2) Ventricular fibrillation Additional Plan 1-V-Fib -Continue Amiodarone + Lopressor 2-NSTEMI -Schedule for Cardiac Cath 3-H/O Renal Transplant -Check Tacrolimus levels? 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
[2025-08-21] MEDS ORDERED: polyvinyl alcohol eye drops 15ML BOTTLE EACHEYE PRN (08:55)
[2025-08-21] MEDS ORDERED: normal saline 1000ml 100 ML IV PRN (09:15)
[2025-08-21] MEDS ORDERED: midazolam 1 mg/ML 2ml injection ONE (09:31)
[2025-08-21] MEDS ORDERED: fentaNYL/PF 50MCG/1 ML 2ML syringe ONE (09:31)
[2025-08-21] MEDS ORDERED: LIDOcaine 1% 30ml preserv. free vial ONE (09:31)
[2025-08-21] MEDS ORDERED: iohexol 350 MG/ML 50ML vial IV ONE ×2 (09:31→10:31)
[2025-08-21] MEDS ORDERED: nitroGLYCERIN 500mcg/5mL D5W 5 ML IV ONE (10:28)
--- NOTE | 2025-08-21 10:38 | PROGRESS NOTE ---
Progress Note Dictate Providers to CC ~ Progress Note: This is a 54-year-old male with a history of coronary artery disease (s/p PCI), two prior renal transplants (2001, 2012), and chronic immunosuppression (tacrolimus, mycophenolate, prednisone), who presented with NSTEMI and subsequently developed ventricular fibrillation arrest requiring CPR, defibrillation, and multiple cardioversions. He is currently on an amiodarone infusion and has developed acute kidney injury (ALBER) on a background of a transplanted kidney. His labs reveal significant azotemia (BUN 60, creatinine 4.01), metabolic acidosis (CO2 15.6), hyperkalemia (K 5.0), and anemia (Hgb 7.1). He is also hyperglycemic (glucose 208). The etiology of his ALBER is likely multifactorial, including ischemic insult from cardiac arrest, possible nephrotoxic medication exposure (amiodarone, tacrolimus), and hemodynamic instability. He is at high risk for further renal compromise and allograft dysfunction. His immunosuppressive regimen requires careful adjustment in the setting of ALBER and critical illness to balance the risk of rejection with infection and drug toxicity. Antibiotic Ordered?: N/A Subjective Subjective Doing well this morning, has cath today, and JHD afterwards Objective Vitals Vital Signs Date Time Temp Pulse Resp B/P (MAP) Pulse Ox O2 Delivery O2 Flow Rate FiO2 08/21/25 09:00 71 22 137/83 (101) 97 Room Air 08/21/25 08:00 97.7 08/18/25 10:54 1.5 08/18/25 08:37 40 RRR w/o murmur CTAB +BS, NT 1+ edema Lab Results: 08/21/25 0122 08/21/25 0122 Coagulation Studies Laboratory Tests Test 08/18/25 06:52 08/18/25 13:31 Prothrombin Time 11.5 SECONDS (9.0-12.0) INR International Normalized Ratio 1.1 INR Activated Partial Thromboplast Time 50 SECONDS (22-32) H APTT (Heparin Protocol) 38 SECONDS (45-60) L Coagulation Comments Other Results I & O 08/21/25 07:00 Intake Total 2722.3 ml Output Total 2800 ml Balance -77.7 ml Intake Oral 840 ml IV Total 1882.3 ml Output Urine Total 2800 ml # Bowel Movements 1 Problem\Assessment\Plan Additional Plan This patient with a history of renal transplantation and CAD has developed ALBER following cardiac arrest and NSTEMI, with significant metabolic derangements and anemia. Management priorities include supportive care for ALBER, careful adjustment of immunosuppression, correction of electrolyte and acid-base disturbances, and close monitoring for infection, rejection, and further cardiac events. Multidisciplinary collaboration with transplant nephrology and cardiology is essential. 1. Acute Kidney Injury (ALBER) in Kidney Transplant Patient His ALBER is probably due to low blood flow during his cardiac arrest, possible medication side effects, and his history of kidney transplant. Check kidney function (BUN, creatinine, urine output, urine spot studies) every day. Watch fluid balance closely (input/output, daily weights). Avoid nephrotoxic agents. Check tacrolimus levels and adjust the dose as needed. Consider lowering or stopping mycophenolate if he has low blood counts or infection. Treat metabolic acidosis if it gets worse. Treat high potassium if it rises further. Get a kidney ultrasound if there is concern for obstruction. He will likely need dialysis after angiography, please place a TDC today so we can dialyze him starting after angiography. 2. Immunosuppression Management He is on three drugs to prevent kidney rejection. With ALBER, the risk of drug side effects and infection is higher. Check tacrolimus blood level and keep it at the lower end of the safe range, 3- 8. Lower or stop mycophenolate if he has infection or low blood counts. Continue prednisone at his usual dose; increase if he is unstable. Watch for signs of infection and low blood counts. Work with the transplant team to adjust medications. Watch for signs of kidney rejection (rising creatinine, low UOP). 3. Electrolyte and Acid-Base Problems He has high potassium, low CO2 (acidosis), and high blood sugar. Check electrolytes and acid-base status often. Treat high potassium if needed (calcium, insulin/glucose). Treat acidosis if it is severe. Control blood sugar with insulin if needed. Avoid medicines that make potassium or acidosis worse. 4. Anemia and Low Platelets He has a low red blood cell count and slightly low platelets, likely from chronic disease, possible blood loss, or medication side effects. Check blood counts daily. Give blood transfusion if he is symptomatic or hemoglobin is below 7. Look for any bleeding. Review medications for side effects. Lower or stop mycophenolate if blood counts drop further. 5. Heart Problems and Arrhythmia He had an NSTEMI and cardiac arrest, now in sinus tachycardia after treatment. Keep him on heart monitoring. Watch for side effects from amiodarone, especially with kidney problems. Adjust beta-hilario dose as needed. Work with cardiology for ongoing care, angiography scheduled for today, he had IVF 0.9% NS 100 mL/hr overnight. JACOBY ANGELES III DO Aug 21, 2025 10:38
[2025-08-21] MEDS ORDERED: HYDROcodone/acetaminophen 10/325mg tab PO PRN (11:20)
[2025-08-21] MEDS: normal saline 1000ml 1,000 ML IV SCH (11:20)
[2025-08-21] MEDS ORDERED: ondansetron/PF 4mg/2ml inj IV PRN (11:20)
[2025-08-21] MEDS ORDERED: HYDROcodone/acetaminophen 5mg/325mg tablet PO PRN (11:20)
[2025-08-21] MEDS ORDERED: OXAZEpam 15mg capsule PO PRN (11:20)
--- NOTE | 2025-08-21 11:24 | CARDIAC CATH REPORT ---
Cardiology Post Cath Findings Findings Findings: Complicated left heart catheterization left ventriculography coronary arteriography Angio-Seal application. Indication: Sudden cardiac with resuscitation. VFib arrest. Status post renal transplant x2 renal failure. Anemia from blood loss and chronic disease. Immunosuppressive therapy. Findings: 1. Normal left ventriculogram ejection fraction 70+% 2. Diffuse calcification of left anterior descending left circumflex right coronary artery. There is no left main coronary artery. 3 100. % diagonal with collaterals serial 99% right coronary with [id number] collaterals 4. Serial 50 50% and pre and post stent 90% age narrowings. Circumflex. 5. Multiple 40 50% narrowings in right coronary with 80% proximal. Tortuous heavily calcified. Comment: Easily patient should have multivessel coronary bypass grafting two diagonal left anterior descending left circumflex and posterior descending of right coronary. Discussed case unofficially with Dr. Marmolejo cardiovascular surgeon in attendance. Due to chronic immune suppressive therapy complicated postoperative care would recommend transfer to a higher level of care for coronary bypass grafting and/or intervention. The patient's usual rn hemo dialysis will be back on 08/22/2025. Patient tells me that he had a nuclear stress test this year that was unremarkable. And he had no symptoms during it. Likely he never does have any symptoms of angina. JOANN DEJESUS MD Aug 21, 2025 11:24
[2025-08-21] MEDS: sodium bicarbonate 1meq/ml inj 150 ML in dextrose 5%-water 1,000 ML IV SCH (11:49)
--- NOTE | 2025-08-21 15:47 | DISCHARGE SUMMARY ---
Discharge Summary Providers to CC ~ Discharge Summary Admission Diagnosis: NSTEMI Hospital Course DATE OF ADMISSION: 08/18/2025 DATE OF DISCHARGE: 08/21/2025 Discharge Diagnosis\Comment: 1-NSTEMI: S/P Cardiac Cath. Surgical Revascularization recommended 2-V. Fib Arrest: Amiodarone + Lopressor 3-H/O Kidney Transplant: Cellcept + Tacrolimus + Prednisone continued. 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 Had V. Fib Episode requiring DC Chock *1. Amiodarone drip initiated Cardiology consulted for Cardiac Cath. Also with H/O Kidney Transplant, most likely to require STEAM SETTER. Pt has remained hemodynamically stable + CP-free throughout this hospitalizat ion. However Surgical Revascularization recommended at a Tertiary Center due to complex Coronary anatomy and co-morbidities. *Problems/Diagnosis: (1) NSTEMI (non-ST elevated myocardial infarction) Status: Acute (2) Ventricular fibrillation Status: Resolved Total Time Spent on D/C: Up to 30 Minutes NEERU GARCIA MD Aug 21, 2025 15:42
--- NOTE | 2025-08-21 18:37 | CARDIOLOGY REPORT ---
DATE OF SERVICE: 08/21/2025 DICTATING PHYSICIAN: Phu Landaverde MD PROCEDURES: * Left heart catheterization. * Left ventriculography. * Left and right internal mammary angiography. * Right iliofemoral arteriogram. * Conscious sedation administration, 30 minutes. * Angio-Seal application. BRIEF HISTORY AND INDICATION: A 54-year-old male had cardiac arrest, was resuscitated, cardioverted, chest compression, stabilized and subsequently brought to the yard laborer after few days of recovery. He had multiple discussions between him and his with respect to diagnostic coronary angiography as he has had 2 prior renal stents. He had a normal nuclear scan few months ago by their history, and he was worried about having another renal transplant. I informed him that there will not be a renal transplant certainly until he gets a diagnostic coronary angiogram. He had consultation by online producer, Dr. Chaudhari. Dr. Caldwell assisted in his management. I obtained unofficial consult from cardiac surgeon, who declined to have surgery done at this hospital as the patient is on long-term immunosuppressive therapy. He has not seen a transplant center in years. There have been efforts made to transfer him multiple times. Risks of the procedure included and not restricted to , stroke, myocardial infarction, renal failure, neurologic/vascular complication, bleeding complication and allergic reaction. TECHNIQUE: Following usual sterile preparation and draping, right groin was infiltrated with 8 mL of 1% lidocaine local anesthetic. Conscious sedation was achieved with 2 mg Versed, 25 mg Benadryl and 50 mcg fentanyl. For blood pressure control, the patient received 300 mg of intra-arterial nitroglycerin. HE IS ALLERGIC TO APRESOLINE. He was maintained on oxygen 2 L/min and normal saline 100 mL/hr. For renal protection with baseline creatinine of 4.5, he received overnight saline infusion and has been on bicarbonate infusion. Plan is to have dialysis post heart catheterization, as per Nephrology and hot packer. Following the usual single wall puncture technique, J-tip guidewire lead, a 6-Kyrgyz sheath was introduced into the right femoral artery. Selective left and right coronary arteriography multiprojectional obliquities. Selective internal mammary angiographies were performed with 6-Kyrgyz femoral left 4/right 4 Jesus-shaped catheters. Left ventriculography and right anterior oblique projection was performed with 6-Kyrgyz straight pigtail catheter. Hand injection was performed for left ventriculography. Omnipaque 350 contrast, 65 mL, was administered. Fluoroscopy time was 2.8 minutes. Radiation sketch exposure was 6,287 cGy/cm2. There were no complications. FINDINGS: 6 feet 3 inches, 223 pounds; AO 124/69; LV 126/0-11 during inspiration; LV 155/9-25 during expiration. Left ventricular ejection fraction 70%. Left and right internal mammary arteries are smooth. There is no left main coronary artery or separate ostia of the left anterior descending and left circumflex. There is 50% ostial left anterior descending narrowing and 80% proximal left anterior descending narrowing. The vessel is diffusely calcific from the ostia to the second diagonal and very tortuous. It has multiple 50% narrowings throughout. The left anterior descending wraps around the apex of the myocardium and provides collateral to the posterior descending artery arising from the right coronary. There is 100% first diagonal that is collateralized. Noted arising from the proximal left anterior descending is a tortuous coronary fistula to the aorta. Left circumflex is heavily calcific and tortuous. It has proximal 50% narrowing. First obtuse marginal is 100% obstructed with collateralization. The left circumflex has a pre- and post-stent edge and 90% narrowing and large obtuse marginal branch. Left circumflex provides okkgzmsznb-lk-rviheuwty descending and supplies the left atrial branch. Right coronary is tortuous, heavily calcified with diffuse 50% narrowing and serial 99% narrowing. Posterior descending in the mid portion has 99% narrowing and a small posterolateral branch. RESULTS: * Normal left ventriculogram. * Heavy calcification, tortuous vessels, left anterior descending, left circumflex and right coronary artery. * There is no left main coronary artery. * 50% ostial left anterior descending, 80% proximal left anterior descending. * 100% first diagonal with collateralization. * First obtuse marginal with collateralization. * Second obtuse marginal large vessel with 90% pre- and post-stent edge narrowing. * Right coronary tortuous, calcific, diffuse 50% narrowing, serial 90% and 99% narrowing, 99% in posterior descending small posterolateral branch. * Dggv-gz-yrldn collateral to the right posterior descending artery is noted. COMMENT: The patient is judged by surgical team to be high risk for surgical revascularization. He is poor for coronary intervention. It was advised for him to be transferred to a higher level of care with transplant team evaluation. If transfer cannot be performed, he will require dialysis post heart catheterization. Phu Landaverde MD TID: [id number] RECEIPT: [id number] TR/STEPHANIE cc: CORY Cash MD(User)[facility]
== END 2025-08-21 23:26 | disposition short-term general hospital (02) | DRG 280 ==
LOC: ER 05:11 → ED HOLD 10:49 → EDBEDREQ 11:36 → CICU 2S 11:59
PROVIDERS: ADMIT Internal Medicine Critical Care Medicine; ATTEND Internal Medicine Critical Care Medicine
PROC: 30233N1 Transfusion of Nonautologous Red Blood Cells into Peripheral Vein, Percutaneous Approach (ICD-10-PCS; 2025-08-18)
PROC: 5A2204Z Restoration of Cardiac Rhythm, Single (ICD-10-PCS; 2025-08-18)
PROC: 5A12012 Performance of Cardiac Output, Single, Manual (ICD-10-PCS; 2025-08-18)
PROC: 4A023N7 Measurement of Cardiac Sampling and Pressure, Left Heart, Percutaneous Approach (ICD-10-PCS; principal; 2025-08-21)
PROC: B2111ZZ Fluoroscopy of Multiple Coronary Arteries using Low Osmolar Contrast (ICD-10-PCS; 2025-08-21)
PROC: B2151ZZ Fluoroscopy of Left Heart using Low Osmolar Contrast (ICD-10-PCS; 2025-08-21)
PROC: B41F1ZZ Fluoroscopy of Right Lower Extremity Arteries using Low Osmolar Contrast (ICD-10-PCS; 2025-08-21)
DX: I21.4 Non-ST elevation (NSTEMI) myocardial infarction (principal); I46.2 Cardiac arrest due to underlying cardiac condition; I49.01 Ventricular fibrillation; T86.19 Other complication of kidney transplant; K92.2 Gastrointestinal hemorrhage, unspecified; D84.821 Immunodeficiency due to drugs; I47.20 Ventricular tachycardia, unspecified; E87.20 Acidosis, unspecified; N17.9 Acute kidney failure, unspecified; I12.9 Hypertensive chronic kidney disease with stage 1 through stage 4 chronic kidney disease, or unspecified chronic kidney disease; D64.9 Anemia, unspecified; N18.9 Chronic kidney disease, unspecified; Y83.0 Surgical operation with transplant of whole organ as the cause of abnormal reaction of the patient, or of later complication, without mention of misadventure at the time of the procedure; I48.91 Unspecified atrial fibrillation; I25.10 Atherosclerotic heart disease of native coronary artery without angina pectoris; E78.00 Pure hypercholesterolemia, unspecified; E87.5 Hyperkalemia; M10.9 Gout, unspecified; R73.9 Hyperglycemia, unspecified; Z79.621 Long term (current) use of calcineurin inhibitor; Y92.89 Other specified places as the place of occurrence of the external cause
CPT/HCPCS: 36415; 36430; 71045; 80048; 80076; 80197; 80320; 81001; 82272; 82570; 83036; 83605; 83735; 83880; 83935; 84100; 84133; 84300; 84484; 84540; 85025; 85027; 85610; 85651; 85730; 86885; 86900; 86901; 86920; 87207; 87340; 92950; 93005; 93306; 93458; 99152; 99153; 99291; 99292; A6258; C1752; C1760; G0378; J0282; J0604; J0612; J1200; J1644; J2003; J2250; J2270; J2470; J3010; J3360; J3475; J3490; J7030; J7040; J7070; J7507; J7512; J7517; P9016; Q9967

== ENCOUNTER 2025-09-12 22:46 | Emergency (ER) | payer OTHER ==
[~2025-09-12] VITALS: Ht 190.5 cm; Wt 97.1 kg
[~2025-09-12 22:46] MED LIST changes: -ASPI-1265 PO; +ASPI81TA52 PO; +CALC0.5C8 PO; +LISI10TA27 PO
--- NOTE | 2025-09-12 23:46 | RADIOLOGY REPORT ---
CHEST RADIOGRAPH INDICATION: CP TECHNIQUE: Single frontal view of the chest was obtained COMPARISON: DI CHEST,SINGLE VIEW on DOS: 08/18/25, CHEST,SINGLE VIEW on DOS: 05/13/21 FINDINGS: Lines and Tubes: Right PermCath tip projects over the distal superior vena cava. Lungs: Bilateral pleural effusions, vqzn-ggekmrx-lles-right and left basilar pulmonary airspace disease. No pneumothorax. Cardiomediastinal contours: Cardiomegaly status post median sternotomy. Bones: Unremarkable IMPRESSION: 1. Cardiomegaly with bilateral pleural effusions, npab-vrkshsk-sbth-right and left basilar pulmonary airspace disease. 2. Right PermCath.
[2025-09-13 00:01] LABS: MEAN PLATELET VOLUME 7.7 FL (7.4-10.4); RED CELL DISTRIBUTION WIDTH 17.0 % (11.5-14.5)
[2025-09-13 00:18] LABS: CREATININE 4.94 MG/DL (0.60-1.10); TOTAL CARBON DIOXIDE 24.4 MMOL/L (24-32); eCRCL 20 ML/MIN; eGFR 12 ML/MIN
--- NOTE | 2025-09-13 00:24 | Physician Documentation ---
History of Present Illness ~ Chief Complaint: Post-operative complication Stated Complaint: COMPLICATION FROM SURGERY SITE Time Seen by MD: 00:21 Primary Medical Doctor: Dr. Kirill Sherwood HPI Patient is a 54 year old male presenting with his - he had dialysis catheter placed to right chest wall yesterday. There was bleeding from the site this morning while at [facility] which they addressed and stopped. When they arrived home today it started bleeding again. They called [facility] and after it continued to bleed following holding pressure for 15 minutes he was advised to come to the ED. Patient denies any other associated symptoms. Patient denies any other alleviating or exacerbating factors at this time. Tetanus within 5 years: Yes Medication Reconciliation Allergies: Coded Allergies: hydralazine (Unverified Allergy, Unknown, 08/18/25) Scheduled Aspirin (Aspirin EC), 1 TAB PO DAILY, (Reported) Atorvastatin Calcium* (Lipitor*), 10 MG PO MWF, (Reported) Calcitriol (Calcitriol), 1 CAP PO DAILY, (Reported) Cinacalcet Hcl* (Sensipar*), 30 MG PO HS, (Reported) Ergocalciferol (Vitamin D2) (Vitamin D2), 1 CAP PO Q7D, (Reported) Febuxostat (Uloric), 1 TAB PO DAILY, (Reported) Lisinopril (Lisinopril), 1 TAB PO HS, (Reported) Magnesium Oxide (Magnesium), 400 MG PO BID, (Reported) Metoprolol Tartrate (Lopressor tablet), 50 TAB PO QAM, (Reported) Mycophenolate Mofetil (Mycophenolate Mofetil), 750 MG PO BID, (Reported) Prednisone* (Prednisone*), 5 MG PO DAILY, (Reported) Tacrolimus Anhydrous (Prograf), 4 MG PO BID, (Reported) Past Medical History Past Medical History: Coronary Artery Disease, High Cholesterol, Hypertension, Kidney Transplant, Renal Disease, Gout Past Surgical History: other Other Past Surgical History: kidney transplant, cardiac stents Patient History: Patient reports no known family medical history. Alcohol Use: None Drug Use: none Lives with: S/O Lives In: Home Occupation: employed Review of Systems All Other Systems at this time: Reviewed and Negative ROS As stated above in the HPI, otherwise all systems are reviewed and negative. Physical Exam Vital Signs: RN Vital Signs have been reviewed: Yes, Temperature: 98.7, Source: Oral, Heart Rate: 93, Respiratory Rate: 18, BP: 110/75, Pulse Oximetry: 95, Weight: 97.100 Oxygen Flow Rate: 0 Pulse Oximetry Reflects: adequate oxygenation Physical Exam General: Patient is awake, alert, oriented x4 in no acute distress and well appearing.~ Head: Normocephalic and atraumatic. Eyes: Conjunctival normal. EOMI. PERRL. ENT: Mucous membranes moist. Neck: Supple, trachea is midline. Chest: Dialysis tunnel catheter to right upper chest with no signs of infection or active bleeding. Clear to auscultation bilaterally without rales, rhonchi, or wheezes. There is no accessory muscle use or retractions. Cardiac: RRR without murmurs, gallops, or rubs. Abd: Soft, nondistended, nontender, with normoactive bowel sounds. No guarding, rebound, or rigidity. Extremities: Normal strength. Normal range of motion. No deformities or edema. Back: No midline spinal or CVA tenderness. Skin: Warm and dry with no significant rash appreciated. Neuro: Cranial nerves II-XII grossly intact. No focal neuro deficits. Patient ambulating without difficulty. Progress Results/Orders Results/Orders Vital Signs 09/12/25 09/13/25 09/13/25 09/13/25 22:58 00:14 00:33 00:39 Temp 98.7 98.7 98.7 Pulse 105 93 92 Resp 18 30 B/P (MAP) 125/77 110/75 (87) 100/69 Pulse Ox 96 95 97 O2 Flow Rate 0 Laboratory Tests Test 09/12/25 23:49 White Blood Count 7.4 Red Blood Count 3.03 L Hemoglobin 8.7 L Hematocrit 26.6 L Mean Corpuscular Volume 87.7 Mean Corpuscular Hemoglobin 28.8 Mean Corpuscular Hemoglobin Concent 32.9 L Red Cell Distribution Width 17.0 H Platelet Count 337 Mean Platelet Volume 7.7 Neutrophils (%) (Auto) 83.8 H Lymphocytes (%) (Auto) 7.4 L Monocytes (%) (Auto) 7.6 Eosinophils (%) (Auto) 0.6 Basophils (%) (Auto) 0.6 Neutrophils # (Auto) 6.2 Lymphocytes # (Auto) 0.6 L Monocytes # (Auto) 0.6 Eosinophils # (Auto) 0.0 Basophils # (Auto) 0.0 CBC Comment Sodium Level 138 Potassium Level 4.5 Chloride Level 100 Carbon Dioxide Level 24.4 Anion Gap 14 Blood Urea Nitrogen 68 H Creatinine 4.94 H Estimated GFR/1.73 m2 12 BUN/Creatinine Ratio 13.8 Glucose Level 104 Calcium Level 9.6 Total Bilirubin 0.4 Aspartate Amino Transf (AST/SGOT) 12 Alanine Aminotransferase (ALT/SGPT) 8 L Alkaline Phosphatase 106 Total Protein 6.2 L Albumin 2.7 L Globulin 3.5 Albumin/Globulin Ratio 0.8 L Chemistry Comments EKG/XRAY/CT/US/VASC/MRI Chest X-Ray : Interpreted By: radiologist Views: 1 VIEW Abdominal X-Ray : Additional Comment CHEST RADIOGRAPH INDICATION: CP TECHNIQUE: Single frontal view of the chest was obtained COMPARISON: DI CHEST,SINGLE VIEW on DOS: 08/18/25, CHEST,SINGLE VIEW on DOS: 05/13/21 FINDINGS: Lines and Tubes: Right PermCath tip projects over the distal superior vena cava. Lungs: Bilateral pleural effusions, [id number]-right and left basilar pulmonary airspace disease. No pneumothorax. Cardiomediastinal contours: Cardiomegaly status post median sternotomy. Bones: Unremarkable IMPRESSION: 1. Cardiomegaly with bilateral pleural effusions, [id number]-right and left basilar pulmonary airspace disease. 2. Right PermCath. Electronically Signed by:PRITESH AMAYA MD Date & Time: 09/12/25 3954 Dictated by: PRITESH AMAYA MD Dictation date and time: 09/12/25 2325 Primary Care Provider: NO PRIMARY CARE PROVIDER cc: SUSAN GOLDBERG ~ Medical Decision Making Additional information obtaine: N/A Findings Patient presents to the emergency room with bleeding from catheter as per HPI. Differentials include but are not limited to anemia, blood describe lysis, arterial bleed, venous bleed therefore basic labs ordered which was reassuring for no significant anemia compared to his baseline. Bleeding has stopped. ER precautions discussed General Diff Dx:Considerations: Include: Abrasion, Contusion, Fracture, Hematoma, Laceration, Malunion, Neurovascular injury, Open fracture, Sprain, Ulcer, Other Shoulder Diff Dx:Consideration: Include: AC separation, Adhesive capsulitis, Arthritis, Bicipital tendonitis, Calcific tendonitis, Cervical disc disease, Contusion, Dislocation, Fracture-humerus, Fracture-scapula, Fracture-clavicle, GB disease, Hematoma, Impingement syndrome, Myocardial infarction, Neurovascular injury, Open fracture-humerus, Open fracture-scapula, Open fracture-clavicle, Rotator cuff injury, SC dislocatoin, Sprain, Subacromial bursitis, Other Elbow Diff Dx:Considerations: Include: Abrasion, Arthritis, Contustion, DJD, Fracture-humerus, Fracture-radial head, Fracture-radius, Fracture-ulna, Gout, Hematoma, Laceration, Neurovascular injury, Olecranon bursitis, Open fracture, Osteomyelitis, Radial head subluxation, Rheumatoid arthritis, Septic, Sprain, Ulcer, Other Wrist Diff Dx:Considerations: Include: Abrasion, Arthritis, DJD, Gout, Rheumatoid, Septic, Carpal tunnel snydrome, Contusion, Dislocation, Fracture- carpal, Fracture-radius, Fracture-ulna, Ganglion, Laceration, Neurovascular injury, Open fracture, Strain, Other Hand Diff Dx:Considerations: Include: Abrasion, Arthritis, Contusion, DJD, Felon, Fracture-carpal, Fracture-metacarpal, Fracture-phalynx, Fracture-radius, Fracture-ulna, Gout, Hematoma, Herpetic renee, Laceration, Neurovascular injury, Open fracture, Paronychia, Rheumatoid arthritis, Septic, Sprain, Subungual hematoma, Tenosynovitis, Volar plate injury, Cellulitis, Malunion, Other Finger Diff Dx:Considerations: Include: Abrasion, Cellulitis, Contusion, Dislocation, Fracture, Hematoma, Laceration, Neurovascular injury, Open fracture, Subungual hematoma, Other Departure Time of Disposition: 00:29 Disposition: 01 HOME / SELF CARE / HOMELESS Impression: Primary Impression: Complications, dialysis, catheter, mechanical Qualified Codes: T82.49XA - Other complication of vascular dialysis catheter, initial encounter Condition: Stable Discharge Instructions: General Discharge Instructions Additional Instructions: Follow up with [facility]/dialysis team for further evaluation and care. Return to the ED if any new or worsening symptoms develop. Referrals: NO PRIMARY CARE PROVIDER (PCP) Education Educated: Patient Educated regarding: diagnosis, treatment Signature Scribe Signature: Scribed for Yadiel Nguyễn MD by Alma Gross . 09/13/25 00:31 Attestation: The note accurately reflects work and decisions made by me.Yadiel Nguyễn MD 09/13/25 21:22 YADIEL NGUYỄN MD Sep 13, 2025 00:24 ALMA VILLEDA Sep 13, 2025 00:31
[2025-09-13 00:39] VITALS: BP 100/69; PULSE 92; RESP 30; TEMP 98.7; O2SAT 97
== END 2025-09-13 00:41 | disposition home or self-care (01) ==
LOC: ER 22:47
DX: T82.49XA Other complication of vascular dialysis catheter, initial encounter (principal); I25.10 Atherosclerotic heart disease of native coronary artery without angina pectoris; E78.00 Pure hypercholesterolemia, unspecified; I10 Essential (primary) hypertension; Z88.8 Allergy status to other drugs, medicaments and biological substances; Z95.5 Presence of coronary angioplasty implant and graft; Z99.2 Dependence on renal dialysis; Z94.0 Kidney transplant status; Z79.82 Long term (current) use of aspirin; Z79.899 Other long term (current) drug therapy; Z98.890 Other specified postprocedural states; Y71.2 Prosthetic and other implants, materials and accessory cardiovascular devices associated with adverse incidents
CPT/HCPCS: 36415; 71045; 80053; 85025; 99284